=== PATIENT | female | born 1945 | race Caucasian/White ===

== ENCOUNTER 2018-11-14 11:30 | Inpatient (IN) ==
--- NOTE | 2018-11-14 12:02 | Emergency Department Note ---
Disposition Clinical Impression: GI bleeding Disposition: Admitted As Inpatient Condition: Fair Referrals: Monica Vernon CNP [Primary Care Provider] - Forms: ED Satisfaction Letter Time of Disposition: 14:33 General Adult HPI - General Chief complaint: ED Recheck/Abnormal Lab/Rx Stated complaint: "blood transfusion" Time Seen by Provider: 11/14/18 11:40 Source: patient, family Limitations: no limitations - History of Present Illness HPI Narrative: Patient is a 73-year-old female presents to emergency room with abnormal lab work. The patient did have labs drawn yesterday at her doctor's office, they came back today apparently she had a low hemoglobin, she was contacted this morning and urged to come directly to the emergency room for further evaluation. Patient does complain of being overall weak for the past one month. The patient also short of breath with exertion for the same time period. Patient denies any chest pain or abdominal pain, she denies any black or bloody stools. The patient has had some swelling in her legs she states. She has had no other or GI complaints. She has had no headaches. Patient has had no nausea or vomiting. She does complain of some back discomfort in her mid and low back pain going on for about the last 3-4 months as well. Patient states that is moderate in intensity, sometimes worse with motion. Patient denies any other focal weakness or numbness. She has had no loss of bowel or bladder. She has had no numbness or tingling. Pain Scale: 0 - Related Data Home Medications Medication Instructions Recorded Confirmed Lovastatin 10 mg PO DAILY 06/04/16 06/04/16 Previous Rx's Medication Instructions Recorded Ciprofloxacin [Cipro] 500 mg PO BID #20 tablet 06/04/16 Promethazine/Dextromethorphan 5 ml PO Q4-6H #240 syrup 06/04/16 [Promethazine-Dm Syrup] Allergies Allergy/AdvReac Type Severity Reaction Status Date / Time No Known Allergies Allergy Verified 06/04/16 12:54 Review of Systems: As mentioned per history of present illness and as follows. Constitutional: Negative for chills or fever HENT: Negative for sore throat. Eyes: Negative for visual disturbance Respiratory: Positive for shortness of breath. Cardiovascular: Negative for palpitations. Gastrointestinal: Negative for abdominal pain Genitourinary: Negative for dysuria Musculoskeletal: Positive for back pain. Skin: Negative for rash. Neurological: Negative for focal weakness Psychiatric/Behavioral: Negative for depression Past Medical History - Past Medical History Medical history: Reports: hyperlipidemia, thyroid disease Psychiatric history: Reports: no psych history - Social History Smoking Status: Never smoker Smokeless Tobacco Status: No Alcohol use: Reports: none Drug use: Reports: none Physical Exam PHYSICAL EXAM Constitutional: Well developed, Well nourished, No acute distress, Non-toxic appearance. HENT: Normocephalic, Atraumatic, Bilateral external ears normal, Oropharynx moist, No oral exudates, Nose normal. Neck- Normal range of motion, No tenderness, Supple. Eyes: PERRL, EOMI, Conjunctiva pale,. Cardiovascular: Tachycardic rate and regular rhythm without clicks, rubs, gallops. +2 systolic murmur Respiratory: Normal breath sounds, No respiratory distress, No wheezing, rhonchi, or crackles. GI: Soft, nontender, no evidence of guarding or peritoneal signs. Bowel sounds are active. Musculoskeletal: Good range of motion in all major joints. No tenderness to palpation or major deformities noted to the extremities. The patient does have tenderness of the mid and lower aspects of the spine into the thoracic and lumba r region. Equal strength in the upper and lower extremities. Integument: Warm, Dry, No erythema, No rash. No edema. Neurologic: Alert & oriented x 3, Normal sensory function, No focal deficits noted. CN II-XII grossly intact. - General Limitations: no limitations Course Vital Signs Temperature 97.4 F L 11/14/18 11:33 Pulse Rate 119 11/14/18 11:33 Respiratory Rate 18 11/14/18 11:33 Blood Pressure 92/52 11/14/18 11:33 O2 Sat by Pulse Oximetry 100 11/14/18 11:33 Temperature 97.4 F L 11/14/18 11:33 Pulse Rate 119 11/14/18 11:33 Respiratory Rate 18 11/14/18 11:33 Blood Pressure 92/52 11/14/18 11:33 O2 Sat by Pulse Oximetry 100 11/14/18 11:33 Oxygen Delivery Oxygen Delivery Room Air Medical Decision Making - MDM Narrative Medical decision making narrative: EKG was obtained that showed evidence of sinus tachycardia 110 beats a minute, the patient has no evidence of ST segment elevation or depression, T-wave flattening seen laterally. AL interval QT intervals within normal limits. Interpreted by myself. Patient is found to have significant anemia, patient has a slight troponin elevation, is most likely secondary to her significant anemia. The patient does found to have a minimal left-sided basilar infiltrate consistent with possible pneumonia. The patient however does not have a cough. She has not had fevers. Patient however does have the shortness of breath, she was treated however with Rocephin and azithromycin. Patient does not appear to be septic. The patient did have a slightly elevated white count. Patient however is also found to be positive for GI bleed. The patient at this point in time was likely has a slow GI bleed resulting her anemia. Patient is not on any blood thinners. Case was discussed with hospitalist as well as with GI doctor distribution spec. Patient at this time will be admitted to the hospital. Patient was also ordered for 2 units of packed red blood cells here in the emergency room. CRITICAL CARE TIME OF 40 MINUTES PERFORMING THIS INDIVIDUAL OUTSIDE OF SEPARATELY BILLABLE PROCEDURES. THIS INCLUDES BEDSIDE EVALUATION, INTERPRETATION OF EKG AND LAB TESTS AND CONSULTATIONS. Final impression 1. Acute blood loss anemia 2. GI bleeding 3. Community acquired pneumonia 4. Elevated troponin most likely secondary to #1 - Lab Data Result diagrams: 11/14/18 11:51 11/14/18 11:51 Lab Results 11/14/18 11/14/18 11/14/18 Range/Units 11:41 11:51 11:51 WBC 14.0 H (4.3-11.1) K/mcL RBC 1.80 L (3.82-4.97) M/mcL Hgb 5.6 L* (11.5-15.4) g/dL Hct 18.8 L (35.3-44.9) % MCV 104.4 H (83.0-100.0) fL MCH 31.1 (28.0-33.3) pg MCHC 29.8 L (31.6-35.5) g/dL RDW 14.9 H (11.5-14.5) % Plt Count 121 L (140-400) K/mcL MPV 12.3 (9.4-12.4) fL Immature Gran % 1.1 (0-4) % Seg Neutrophils % 84.9 % Lymphocytes % 8.2 % Monocytes % 5.4 % Eosinophils % 0.2 % Basophils % 0.2 % Neutrophils # 11.9 H (1.6-8.9) K/mcL Lymphocytes # 1.2 (0.6-4.6) K/mcL Monocytes # 0.8 (0.0-1.3) K/mcL Eosinophils # 0.0 (0.0-0.6) K/mcL Basophils # 0.0 (0.0-0.2) K/mcL Nucleated RBCs/100 WBC 0.2 H (0) /100 WBC Platelet Estimate Slight Decrease L (Normal) Polychromasia 1+ A (Not Present) Anisocytosis 1+ A (Not Present) Macrocytosis Present A (Not Present) PT 14.0 H (9.4-12.1) Seconds INR 1.2 APTT 35.7 (26.0-36.0) Seconds Sodium 138 (136-145) mEq/L Potassium 3.7 (3.5-5.1) mEq/L Chloride 108 H (98-107) mEq/L Carbon Dioxide 25 (23-29) mEq/L BUN 23 (8-23) mg/dL Creatinine 0.76 (0.60-1.20) mg/dL Est GFR ( Amer) > 60 (> 60) Est GFR (Non-Af Amer) > 60 (> 60) BUN/Creatinine Ratio 30 H (6-26) Glucose 94 (70-105) mg/dL Calculated Osmolality 289 (280-300) Calcium 8.2 L (8.6-10.3) mg/dL Troponin I 0.14 H* (< 0.04) ng/mL Stool Occult Bld Scrn (Negative) Blood Type Antibody Screen Crossmatch 11/14/18 11/14/18 Range/Units 12:31 Unknown WBC (4.3-11.1) K/mcL RBC (3.82-4.97) M/mcL Hgb (11.5-15.4) g/dL Hct (35.3-44.9) % MCV (83.0-100.0) fL MCH (28.0-33.3) pg MCHC (31.6-35.5) g/dL RDW (11.5-14.5) % Plt Count (140-400) K/mcL MPV (9.4-12.4) fL Immature Gran % (0-4) % Seg Neutrophils % % Lymphocytes % % Monocytes % % Eosinophils % % Basophils % % Neutrophils # (1.6-8.9) K/mcL Lymphocytes # (0.6-4.6) K/mcL Monocytes # (0.0-1.3) K/mcL Eosinophils # (0.0-0.6) K/mcL Basophils # (0.0-0.2) K/mcL Nucleated RBCs/100 WBC (0) /100 WBC Platelet Estimate (Normal) Polychromasia (Not Present) Anisocytosis (Not Present) Macrocytosis (Not Present) PT (9.4-12.1) Seconds INR APTT (26.0-36.0) Seconds Sodium (136-145) mEq/L Potassium (3.5-5.1) mEq/L Chloride (98-107) mEq/L Carbon Dioxide (23-29) mEq/L BUN (8-23) mg/dL Creatinine (0.60-1.20) mg/dL Est GFR ( Amer) (> 60) Est GFR (Non-Af Amer) (> 60) BUN/Creatinine Ratio (6-26) Glucose (70-105) mg/dL Calculated Osmolality (280-300) Calcium (8.6-10.3) mg/dL Troponin I (< 0.04) ng/mL Stool Occult Bld Scrn Positive A (Negative) Blood Type O POSITIVE Antibody Screen NEGATIVE Crossmatch See Detail Critical Care Time Critical Care Time: Yes Total Critical Care Time: 40 Attestation: Please see chart
[2018-11-14 12:45] LABS: Basophils % 0.2 %; Eosinophils % 0.2 %; Hematocrit 18.8 % (35.3-44.9); Immature Granulocytes % 1.1 % (0-4); Lymphocytes # 1.2 K/mcL (0.6-4.6); Lymphocytes % 8.2 %; Mean Corpuscular HGB Conc 29.8 g/dL (31.6-35.5); Mean Corpuscular Hemoglobin 31.1 pg (28.0-33.3); Mean Corpuscular Volume 104.4 fL (83.0-100.0); Mean Platelet Volume 12.3 fL (9.4-12.4); Monocytes # 0.8 K/mcL (0.0-1.3); Monocytes % 5.4 %; Neutrophils # 11.9 K/mcL (1.6-8.9); Nucleated Red Blood Cells 0.2 /100 WBC (0); Platelet Count 121 K/mcL (140-400); Red Cell Distribution Width 14.9 % (11.5-14.5); Segmented Neutrophils % 84.9 %
[2018-11-14 12:53] LABS: INR 1.2
[2018-11-14 12:55] LABS: Activated Partial Thrombo Time 35.7 Seconds (26.0-36.0)
[2018-11-14 13:01] LABS: BUN/Creatinine Ratio 30 (6-26); Blood Urea Nitrogen 23 mg/dL (8-23); Calcium 8.2 mg/dL (8.6-10.3); Carbon Dioxide 25 mEq/L (23-29); Chloride 108 mEq/L (98-107); Glucose 94 mg/dL (70-105); Osmolality,Calculated 289 (280-300); Potassium 3.7 mEq/L (3.5-5.1); Sodium 138 mEq/L (136-145); eGFR For African Americans > 60 (> 60); eGFR For Non-African Americans > 60 (> 60)
[2018-11-14 13:10] LABS: Troponin I 0.14 ng/mL (< 0.04)
[2018-11-14 13:17] LABS: Hemoglobin 5.6 g/dL (11.5-15.4)
[2018-11-14] MEDS ORDERED: Pantoprazole 40 MG VIAL IVP ONE (13:20)
[2018-11-14] MEDS ORDERED: cefTRIAXone 1,000 MG in Water for inj. (sterile) 10 ML IVP ONE (13:54)
[2018-11-14] MEDS ORDERED: Azithromycin 500 MG in D5% in Water 250 ML IVPB ONE (13:54)
[2018-11-14 13:59] LABS: Anisocytosis 1+ (Not Present); Macrocytosis Present (Not Present); Platelet Estimate Slight Decrease (Normal)
[2018-11-14 14:00] LABS: Polychromasia 1+ (Not Present)
[2018-11-14] MEDS ORDERED: 0.9 % Sodium Chloride 1,000 ML IVC ONE (14:08)
[2018-11-14] MEDS ORDERED: Naloxone 0.4 MG/ML INJ IVP PRN (14:29)
[2018-11-14] MEDS ORDERED: 0.9 % Sodium Chloride 1,000 ML IVC SCH (14:30)
--- NOTE | 2018-11-14 14:41 | Internal Med History&Physical ---
Date of Encounter: 11/14/18 Time of Encounter: 14:40 Internal Medicine - H&P: HPI Chief complaint: anemia Admitted From: Home Plans for Post Hospital Care: Home History of present illness: Ms. Martínez is a 73 year old female with no significant past medical history presented to the emergency department with complaint of abnormal labs. As per patient she recently had routine lab works performed at her primary care [facility] for her annual checkup and was called earlier on admission morning to come to the emergency department immediately as she was severely anemic. She does complain that she is been more weak over the past month and her weakness has gradually worsened. She is also noticed that she is been having shortness of breath especially on exertion for the past few months this also been progressively worsening. She denies any chest pain, abdominal pain, melena, hematochezia, hemoptysis or hematemesis. She does have low back pain which started about 3-4 months ago as well and she has been taking 2 Aleve along with 2 Tylenols daily which alleviates her back pain. She denies any weakness or numbness of her lower extremities, has had no loss of bowel or bladder function. She denies any numbness or tingling associated with her back pain. She was never anemic, is not taking any medications other than the pain medications above along with multivitamins and cholesterol medications. Has never had a colonoscopy however has had an EGD previously for poor oral intake which was many years ago and she cannot recall the results. She denies cough, chills, fever, chest pain, palpitations, abdominal pain, nausea, vomiting or diarrhea. While in the emergency department her hemoglobin was found to be 5.6. GI was consulted and recommended clear liquid diet today and nothing by mouth at midnight for colonoscopy and endoscopy. She was ordered to be transfused 2 units of PRBC. It was endorsed for admission for further management of her acute blood loss anemia. Past Med Surg Social Fam HX - Past Medical History Medical history: hyperlipidemia, thyroid disease Psychiatric history: no psych history - Past Surgical History Additional surgical history: endoscopy - Social History Smoking Status: Never smoker Smokeless Tobacco Status: No Alcohol use: none Drug use: none - Family History Mother Adopted: No Living Status: Cause of : hip fx complications Hx Family Cardiac Disorders: No Hx Family Respiratory Disorders: No Hx Family Cancer: No Hx Family GI Disorders: No Hx Family Genitourinary Disorders: No Hx Family Endocrine Disorder: No Hx Family Musculoskeletal Disorders: No Hx Family Neuromuscular Disorders: No Hx Family Neurologic Disorders: No Father History Unknown: Yes Hx Family Cardiac Disorders: No Hx Family Respiratory Disorders: Yes (TB ) Hx Family Cancer: No Hx Family GI Disorders: No Hx Family Genitourinary Disorders: No Hx Family Endocrine Disorder: No Hx Family Musculoskeletal Disorders: No Hx Family Neuromuscular Disorders: No Hx Family Neurologic Disorders: No Hx Family HEENT Disorders: No Hx Family Autoimmune Disorders: No Internal Medicine - H&P: Meds Ciprofloxacin [Cipro] 500 mg PO BID #20 tablet 06/04/16 [Rx] Lovastatin 10 mg PO DAILY 06/04/16 [History] Promethazine/Dextromethorphan [Promethazine-Dm Syrup] 5 ml PO Q4-6H #240 syrup 06/04/16 [Rx] Allergy/AdvReac Type Severity Reaction Status Date / Time No Known Allergies Allergy Verified 06/04/16 12:54 All Systems PM: A 10-system review of systems was performed and is negative for pertinent findings except as documented above in the HPI. - Constitutional Vitals: Temp Pulse Resp BP Pulse Ox 97.4 F L 119 18 92/52 100 11/14/18 11:33 11/14/18 11:33 11/14/18 11:33 11/14/18 11:33 11/14/18 11:33 Exam: General: Patient is alert, oriented, no acute distress, thin Head: atraumatic, normocephalic, dark discoloration of her face, slight discoloration around the eye and for head. Eye: normal appearance, PERRL, no scleral icterus, no conjunctival pallor ENT: mucous membranes moist, normal external ear exam Neck: normal inspection, trachea midline, full ROM, Chest: normal inspection, symmetric chest rise Respiratory: Good respiratory effort. Bilateral breath sounds are clear without wheezing, crackles, or rhonchi. Cardiovascular: tachcardic . s1 and s2 No clicks, rubs, gallops, or murmors. Abdomen: Bowel sounds present normoactive x-4 quadrants. Abdomen is soft, nondistended. no Epigastric tenderness. No guarding or rebound. No organomegaly noted, thin musculoskeletal: Spontaneously moving all extremities. no edema, no calf tenderness Skin: warm, dry, intact. Neuro: Alert and oriented x4. no focal deficit Psych: Patient's affect is normal Internal Med - H&P Results - Labs CBC & Chem 7: 11/14/18 14:20 11/14/18 14:20 Labs: Short CBC 11/14/18 Range/Units 11:51 WBC 14.0 H (4.3-11.1) K/mcL Hgb 5.6 L* (11.5-15.4) g/dL Hct 18.8 L (35.3-44.9) % Plt Count 121 L (140-400) K/mcL Neutrophils # 11.9 H (1.6-8.9) K/mcL BMP 11/14/18 11:51 Sodium 138 Potassium 3.7 Chloride 108 H Carbon Dioxide 25 BUN 23 Creatinine 0.76 Glucose 94 Calcium 8.2 L Cardiac Enzymes 11/14/18 Range/Units 11:51 Troponin I 0.14 H* (< 0.04) ng/mL - EKG Data -: EKG Interpreted by Myself EKG shows normal: sinus rhythm (sinus tachcardia, LAE, borderline T wave abnormalities in kristian lateral leads) - EKG Data Prior EKG available for review: yes When compared to previous EKG: there is no significant change - Impressions ITS Impressions Lumbar Spine X-Ray 11/14/18 12:03 IMPRESSION: Mild degenerative changes with grade 1 anterolisthesis of L4 on L5. Transitional lumbosacral vertebral body is incidentally noted. D/ : / 11/14/2018 13:02:35 Sherrill Mcgarry MD / [facility] Interpreting Provider: Sherrill Mcgarry MD Chest X-Ray 11/14/18 13:22 IMPRESSION: Patchy left basilar airspace disease concerning for pneumonia. Radiographic follow-up recommended to ensure resolution. D/ /14/2018 13:59:28 Jason Caballero MD / [facility] Interpreting Provider: Jason Caballero MD - Assessment and Plan (1) Acute blood loss anemia Current Visit: Yes Status: Acute Assessment and plan: most likley secondary to GI bleed will rule out other etiologies ( maligancy) - hemoglobin was 14 in 11/2017 admit to step down 2 PRBC ordered continue with protonix drip occult blood positive GI was consulted will keep her nothing by mouth at midnight for EGD and colonoscopy Continue to monitor H&H every 6 hours and transfuse below 7 Iron panel, ferritin and B12 levels were added to the labs prior to transfusion continue to monitor vitals closely orthostatic vitals follow H&H Q6H next one at 6 pm Avoid non-steroidal anti-inflammatory drugs, anti-platelets, anticoagulants (2) GI bleeding Current Visit: Yes Status: Acute Assessment and plan: likely upper GI ? secondary to NSAID use vs AVM rule out malignancy and other etiologies occult blood positive management as above Qualifiers: GI bleed type/associated pathology: unspecified gastrointestinal hemorrhage type Qualified Code(s): K92.2 - Gastrointestinal hemorrhage, unspecified (3) Elevated troponin Current Visit: Yes Status: Acute Assessment and plan: most likely secondary to supple vs demand mismatch from tachycardia secondary to severe anemia continue to follow troponin Q6H currently chest pain free will get TTE continue statins once confirmed if not NPO consider cardiology consult pending next troponin- will endorse to the night team to follow the patient closely (4) CAP (community acquired pneumonia) Current Visit: Yes Status: Acute Assessment and plan: continue with ceftriaxone and azithromycin urine antigens blood cx sputum cx Qualifiers: Laterality: left Lung location: lower lobe of lung Qualified Code(s): J18.1 - Lobar pneumonia, unspecified organism (5) Thrombocytopenia Current Visit: Yes Status: Acute Assessment and plan: ? secondary to poor nutrition and NSAID use will rule out other etiologies ( has macrocytic anemia ? MDS) (6) Underweight Current Visit: Yes Status: Acute Assessment and plan: nutrition consult (7) Macrocytosis Current Visit: Yes Status: Acute Assessment and plan: b12 and folate ordered will follow (8) DVT prophylaxis Current Visit: Yes Status: Acute Assessment and plan: scds (9) Back pain Current Visit: Yes Status: Acute Assessment and plan: lidocaine patch tylenol for pain control lumbar spine: IMPRESSION: Mild degenerative changes with grade 1 anterolisthesis of L4 on L5. Transitional lumbosacral vertebral body is incidentally noted. Qualifiers: Back pain location: low back pain Chronicity: chronic Back pain laterality: bilateral Sciatica presence: without sciatica Qualified Code(s): M54.5 - Low back pain; G89.29 - Other chronic pain - Time Spent With Patient Total time spent is greater than 50% in coordination of care (as documented) at patient's floor/unit and/or counseling patient:
[2018-11-14] MEDS ORDERED: 0.9 % Sodium Chloride 500 ML ONE (14:45)
[2018-11-14 15:01] LABS: BUN/Creatinine Ratio 32 (6-26); Blood Urea Nitrogen 23 mg/dL (8-23); Calcium 7.8 mg/dL (8.6-10.3); Carbon Dioxide 25 mEq/L (23-29); Chloride 108 mEq/L (98-107); Glucose 92 mg/dL (70-105); Magnesium 2.1 mg/dL (1.6-2.6); Osmolality,Calculated 285 (280-300); Potassium 3.8 mEq/L (3.5-5.1); Sodium 136 mEq/L (136-145); eGFR For African Americans > 60 (> 60); eGFR For Non-African Americans > 60 (> 60)
[2018-11-14 15:05] LABS: Eosinophils % 0.2 %; Immature Granulocytes % 0.8 % (0-4)
[2018-11-14 15:06] LABS: Basophils % 0.2 %; Hematocrit 16.9 % (35.3-44.9); Lymphocytes # 1.5 K/mcL (0.6-4.6); Lymphocytes % 11.3 %; Mean Corpuscular Hemoglobin 30.2 pg (28.0-33.3); Mean Corpuscular Volume 104.3 fL (83.0-100.0); Monocytes # 0.6 K/mcL (0.0-1.3); Monocytes % 4.9 %; Neutrophils # 10.6 K/mcL (1.6-8.9); Platelet Count 115 K/mcL (140-400); Red Blood Count 1.62 M/mcL (3.82-4.97); Red Cell Distribution Width 14.9 % (11.5-14.5); Segmented Neutrophils % 82.6 %; White Blood Count 12.8 K/mcL (4.3-11.1)
[2018-11-14 15:10] LABS: Hemoglobin 4.9 g/dL (11.5-15.4)
[2018-11-14 15:44] LABS: Hypochromasia Present (Not Present); Polychromasia 1+ (Not Present)
[2018-11-14 15:45] LABS: Platelet Estimate Slight Decrease (Normal)
[2018-11-14] MEDS ORDERED: Acetaminophen 325 MG TABLET PO PRN (15:59)
[2018-11-14] MEDS ORDERED: SODIUM CHLORIDE/NAHCO3/KCL/PEG 4,000 ML SOLN.RECON PO ONE (16:17)
[2018-11-14 16:25] LABS: % Iron Saturation 5 % (15-50); Iron 19 mcg/dL (50-170); Transferrin 260 mg/dL (203-362)
[2018-11-14 16:44] LABS: Procalcitonin 0.38 ng/mL (0.00-0.15)
[2018-11-14 16:49] LABS: Ferritin 58 ng/mL (10-120)
[2018-11-14] MEDS: Pantoprazole 40 MG in 0.9 % Sodium Chloride Mini Bag 100 ML IVC SCH ×2 (18:48→23:52)
[2018-11-14] MEDS ORDERED: 0.9 % Sodium Chloride 250 ML ONE (20:24)
[2018-11-14 20:48] LABS: Hematocrit 28.8 % (35.3-44.9)
[2018-11-14 20:50] LABS: Hemoglobin 9.1 g/dL (11.5-15.4)
[2018-11-14 23:06] LABS: Bilirubin,Urine Negative (Negative); Blood,Urine Negative (Negative); Clarity,Urine Clear (Clear); Color,Urine Yellow (Yellow); Glucose,Urine (UA) Normal (Normal); Ketones,Urine Negative (Negative); Leukocyte Esterase,Urine Large (Negative); Nitrite,Urine Negative (Negative); Protein,Urine Negative (Neg-Trace); Specific Gravity,Urine 1.023 (1.010-1.025); Urobilinogen,Urine Normal (Normal)
[2018-11-14 23:13] LABS: Bacteria,Urine None Seen per hpf (None-Few); Hyaline Casts,Urine None Seen per lpf (None-Few); Squamous Epithelial Cell,Urine Moderate per lpf (None-Few); WBC,Urine 50-100 per hpf (0-3)
[2018-11-15 01:27] LABS: Hematocrit 32.6 % (35.3-44.9); Hemoglobin 10.5 g/dL (11.5-15.4)
[2018-11-15 01:44] LABS: BUN/Creatinine Ratio 26 (6-26); Blood Urea Nitrogen 16 mg/dL (8-23); Carbon Dioxide 18 mEq/L (23-29); Chloride 110 mEq/L (98-107); Glucose 83 mg/dL (70-105); Osmolality,Calculated 280 (280-300); Potassium 3.5 mEq/L (3.5-5.1); Sodium 135 mEq/L (136-145); eGFR For African Americans > 60 (> 60); eGFR For Non-African Americans > 60 (> 60)
[2018-11-15] MEDS: Pantoprazole 40 MG in 0.9 % Sodium Chloride Mini Bag 100 ML IVC SCH ×2 (04:53→12:01)
[2018-11-15 06:58] LABS: Basophils % 0.3 %; Mean Corpuscular Hemoglobin 30.6 pg (28.0-33.3)
[2018-11-15 07:00] LABS: Eosinophils % 0.2 %; Hematocrit 30.1 % (35.3-44.9); Hemoglobin 9.8 g/dL (11.5-15.4); Immature Granulocytes % 0.9 % (0-4); Immature Platelets 7.5 % (1.1-6.1); Lymphocytes # 0.9 K/mcL (0.6-4.6); Lymphocytes % 7.3 %; Mean Corpuscular HGB Conc 32.6 g/dL (31.6-35.5); Mean Corpuscular Volume 94.1 fL (83.0-100.0); Mean Platelet Volume 12.4 fL (9.4-12.4); Monocytes # 0.8 K/mcL (0.0-1.3); Monocytes % 6.5 %; Neutrophils # 10.8 K/mcL (1.6-8.9); Segmented Neutrophils % 84.8 %; White Blood Count 12.7 K/mcL (4.3-11.1)
[2018-11-15 07:15] LABS: Platelet Count 65 K/mcL (140-400)
--- NOTE | 2018-11-15 08:10 | Electrocardiograph Report ---
[facility] Test Date: 2018-11-14 Pat Name: Macie Martínez Department: [id number] Room: 08 Gender: F Sales Developer: : [id number] Requested By: [id number] Order Number: [id number] Reading MD: German Rubio Measurements Intervals [place] Rate: 110 P: 83 TX: 133 QRS: 77 QRSD: 70 T: -10 QT: 332 QTc: 450 Interpretive Statements Sinus tachycardia Electronically Signed On 11-15-2018 8:09:06 EDT by German Rubio
--- NOTE | 2018-11-15 08:32 | Gastroenterology Consult Note ---
Date of Encounter: 11/15/18 Time of Encounter: 08:00 - Assessment and plan (1) Anemia Current Visit: Yes Status: Acute Assessment and plan: Severe iron deficiency anemia she also has macrocytosis and low platelets and the concern is whether she has cirrhosis too. She will have a EGD colonoscopy done today. I will also do a CT of the abdomen and also we will do liver function tests. She will be given IV iron. She also had already has received blood transfusion Qualifiers: Anemia type: iron deficiency Qualified Code(s): D50.0 - Iron deficiency anemia secondary to blood loss (chronic) (2) Macrocytosis Current Visit: Yes Status: Acute Assessment and plan: Her B12 is normal we will check her folic acid. Also need to rule out liver disorder as cause of her macrocytosis (3) Thrombocytopenia Current Visit: Yes Status: Acute Assessment and plan: Rule out cirrhosis (4) Hypothyroidism Current Visit: Yes Status: Acute Assessment and plan: With elevated TSH management as per hospitalist. Qualifiers: Qualified Code(s): E03.9 - Hypothyroidism, unspecified - Time Spent With Patient Total time spent is greater than 50% in coordination of care (as documented) at patient's floor/unit and/or counseling patient: GI History of Present Illness - Data of Consult Requesting Physician: Angeline Nick MD - Consult Narrative History of present illness: Ms. Martínez is a 73 year old female with no significant past medical history admitted because of severe symptomatic anemia. Patient was found to be very anemic and the was feeling tired and fatigued denies any blood in the stool no trouble swallowing no black stool. She has been giving blood transfusion. She does complain that she is been weak over the past month and her weakness has gradually worsened. She is also noticed that she is been having shortness of breath especially on exertion for the past few months this also been progressively worsening. She denies any chest pain, abdominal pain, melena, hematochezia, hemoptysis or hematemesis. She does have low back pain which started about 3-4 months ago as well and she has been taking 2 Aleve along with 2 Tylenols daily which alleviates her back pain. Past Med Surg Social Fam HX - Past Medical History Medical history: hyperlipidemia, thyroid disease Psychiatric history: no psych history - Past Surgical History Additional surgical history: endoscopy - Social History Smoking Status: Never smoker Smokeless Tobacco Status: No Alcohol use: none Drug use: none - Family History Mother Adopted: No Living Status: Cause of : hip fx complications Hx Family Cardiac Disorders: No Hx Family Respiratory Disorders: No Hx Family Cancer: No Hx Family GI Disorders: No Hx Family Genitourinary Disorders: No Hx Family Endocrine Disorder: No Hx Family Musculoskeletal Disorders: No Hx Family Neuromuscular Disorders: No Hx Family Neurologic Disorders: No Father History Unknown: Yes Hx Family Cardiac Disorders: No Hx Family Respiratory Disorders: Yes (TB ) Hx Family Cancer: No Hx Family GI Disorders: No Hx Family Genitourinary Disorders: No Hx Family Endocrine Disorder: No Hx Family Musculoskeletal Disorders: No Hx Family Neuromuscular Disorders: No Hx Family Neurologic Disorders: No Hx Family HEENT Disorders: No Hx Family Autoimmune Disorders: No Review of Systems: GI: as per [facility]: Been feeling weak and fatigued EYES: denies yellow discoloration ENT: denies pain with swallowing or difficulty swallowing CARDIO: denies chest pain, palpitations RESP: No Shortness of breath with exertion : denies change in color of urine NEURO: denies any weakness HEME: Denies any bruising MS: Does admit of having back pain DERM: denies rash or itching PSYCH: During winter depression - Musculoskeletal Musculoskeletal ROS GI: Present: back pain - Constitutional Vitals: Temp Pulse Resp BP Pulse Ox 97.9 F 92 18 116/57 97 11/15/18 07:45 11/15/18 07:45 11/15/18 07:45 11/15/18 07:45 11/15/18 07:45 Exam: CONSTITUTIONAL:alert, no acute distress.HEAD:normocephalic.EYES:no jaundice.NECK:no obvious swelling.HEART:regular rate and rhythm, aortic area murmurs.LUNGS:bilateral good air entry.ABDOMEN:non distended, soft, non tander, no masses pulpable, no organomegaly.RECTAL EXAM:Deferred.EXTREMIT IES:no clubbing, cyanosis or edema.SKIN:no stigmata of chronic liver disease.NEUROLOGIC:no obvious focal defect. Results - Labs CBC & Chem 7: 11/15/18 06:45 11/15/18 01:09 Labs: Last Result 11/14/18 11/14/18 11/15/18 20:11 23:50 01:09 Calcium 7.0 L Troponin I 0.15 H* 0.19 H* 11/15/18 06:45 Calcium Troponin I 0.17 H* Entire Visit 11/14/18 11/15/18 11/15/18 20:11 01:09 06:45 Hgb 9.1 L D 10.5 L 9.8 L Hct 28.8 L 32.6 L 30.1 L - ABG ABG results: PT/INR, D-dimer PT 14.0 Seconds (9.4-12.1) H 11/14/18 11:41 - Impressions Impressions Lumbar Spine X-Ray 11/14/18 12:03 IMPRESSION: Mild degenerative changes with grade 1 anterolisthesis of L4 on L5. Transitional lumbosacral vertebral body is incidentally noted. D/ / 11/14/2018 13:02:35 Sherrill Mcgarry MD / [facility] Interpreting Provider: Sherrill Mcgarry MD Chest X-Ray 11/14/18 13:22 IMPRESSION: Patchy left basilar airspace disease concerning for pneumonia. Radiographic follow-up recommended to ensure resolution. D/ / 11/14/2018 13:59:28 Jason Caballero MD / [facility] Interpreting Provider: Jason Caballero MD Consult Discharge Plan - Plan Referrals: Monica Vernon, [employer] [Primary Care Provider] - 11/24/18 9:00 am
[2018-11-15] MEDS: cefTRIAXone 2,000 MG in Water for inj. (sterile) 20 ML IVPB SCH (08:59)
--- NOTE | 2018-11-15 09:19 | Anesthesia Evaluation PreOp ---
Date of Encounter: 11/15/18 Time of Encounter: 09:15 - Past History Planned Operation: EGD/Colonoscopy Cardiac History: Hyperlipidemia, Other (Anemia) Pulmonary History: Denies Any Significant HX MIXING SUPERVISOR History: Denies Any Significant HX Other Medical History: Thyroid Anesthesia History: No Prior Anesthetic Complications : No Alcohol Use: none Drug use: none Medications and Allergies Cholecalciferol (D-3) [Vitamin D] 1,000 unit PO DAILY 11/14/18 [History] Levothyroxine [Synthroid] 50 mcg PO Q48H 11/14/18 [History] Levothyroxine [Synthroid] 75 mcg PO Q48H 11/14/18 [History] Lovastatin [Mevacor] 20 mg PO DAILY 11/14/18 [History] Allergy/AdvReac Type Severity Reaction Status Date / Time No Known Allergies Allergy Verified 06/04/16 12:54 - Meds/Allergy Pre-op Review Medications Reviewed: Yes Allergies Reviewed: Yes Beta Blockers on Current Med List: No Anesthesia Results - Labs 11/15/18 06:45 11/15/18 01:09 - Imaging EKG: report reviewed (ST) Anesthesia Exam O2 Sat Height 1.63 m Weight 45.6 kg Weight 41.912 kg O2 Sat by Pulse Oximetry 97 O2 Sat by Pulse Oximetry 97 O2 Sat by Pulse Oximetry 97 O2 Sat by Pulse Oximetry 96 O2 Sat by Pulse Oximetry 98 O2 Sat by Pulse Oximetry 98 O2 Sat by Pulse Oximetry 99 O2 Sat by Pulse Oximetry 99 O2 Sat by Pulse Oximetry 100 O2 Sat by Pulse Oximetry 97 O2 Sat by Pulse Oximetry 100 O2 Sat by Pulse Oximetry 100 O2 Sat by Pulse Oximetry 100 Vital Signs Temp Pulse Resp BP Pulse Ox 97.4 F L 119 18 92/52 100 11/14/18 11:33 11/14/18 11:33 11/14/18 11:33 11/14/18 11:33 11/14/18 11:33 Height: 5'4 Weight: 100 lbs NPO (# of Hours): MN Pain Scale: 0 - HEENT Pupil (Motor): Pupils equal, EOMI Mallampati: III Oral Opening: Less than or equal to 3 - MIXING SUPERVISOR LOC: Oriented MIXING SUPERVISOR Motor: Normal RUE, Normal LUE, Normal RLE, Normal LLE, Normal Face MIXING SUPERVISOR Sensory: Normal: RUE, LUE, RLE, LLE, Face - Cardiac Rhythm: Regular Murmur: None JVD: No Carotid Bruit: No - Pulmonary Breath Sounds: bilateral Clear Respiratory Effort: Symmetrical Anesthesia Assess/Plan ASA Score: 2 (Hypothyroid Thrombocytopenia Hyperlopidemia), 3 Level of consciousness: Cooperative, Oriented Anesthetic Plan: MAC Autologous Blood: No Monitoring Plan: Standard Monitors Recovery Plan: Other (Discussed MAC, agrees to proceed)
--- NOTE | 2018-11-15 09:22 | Internal Med Progress Note ---
Hospitalist Progress Note - Encounter Date of Encounter: 11/15/18 Time of Encounter: 08:00 - Subjective Interval History: She was seen and examined at bedside. Reports that she is feeling much better than admission. Has had no chest pain, palpitations or shortness of breath. Is agreeable for endoscopy and colonoscopy today. Denies any hematemesis, melena or hematochezia overnight. As per nursing staff there was no overnight events. I discussed her Synthroid in proper way to take the medications and she reports that she takes her medications on empty stomach I discussed that I will increase her Synthroid and for her to follow-up TSH level as outpatient. - Exam Vitals: Temp Pulse Resp BP Pulse Ox 97.9 F 92 18 116/57 97 11/15/18 07:45 11/15/18 07:45 11/15/18 07:45 11/15/18 07:45 11/15/18 07:45 Exam: General: Patient is alert, oriented, no acute distress, thin Head: atraumatic, normocephalic, dark discoloration of her face, slight discoloration around the eye and for head. Eye: normal appearance, PERRL, no scleral icterus, no conjunctival pallor ENT: mucous membranes moist, normal external ear exam Neck: normal inspection, trachea midline, full ROM, Chest: normal inspection, symmetric chest rise Respiratory: Good respiratory effort. Bilateral breath sounds are clear without wheezing, crackles, or rhonchi. Cardiovascular: tachcardic . s1 and s2 No clicks, rubs, gallops, or murmors. Abdomen: Bowel sounds present normoactive x-4 quadrants. Abdomen is soft, nondistended. no Epigastric tenderness. No guarding or rebound. No organomegaly noted, thin musculoskeletal: Spontaneously moving all extremities. no edema, no calf tenderness Skin: warm, dry, intact. Neuro: Alert and oriented x4. no focal deficit Psych: Patient's affect is normal - Assessment and Plan (1) Acute blood loss anemia Current Visit: Yes Status: Acute Assessment and Plan: most likley secondary to GI bleed will rule out other etiologies ( maligancy) - hemoglobin was 14 in 11/2017 Status post 3 PRBC with improvement of her H&H to 9.8 continue with protonix drip occult blood positive GI on board for EGD and colonoscopy on 11/15 Continue to monitor H&H every 6 hours and transfuse below 7 B12 within normal limit, iron panel noted continue to monitor vitals closely orthostatic vitals follow H&H Q6H next one at 6 pm Avoid non-steroidal anti-inflammatory drugs, anti-platelets, anticoagulants (2) GI bleeding Current Visit: Yes Status: Acute Assessment and Plan: likely upper GI ? secondary to NSAID use vs AVM rule out malignancy and other etiologies occult blood positive management as above (3) Elevated troponin Current Visit: Yes Status: Acute Assessment and Plan: most likely secondary to supple vs demand mismatch from tachycardia secondary to severe anemia Troponin 0.14-0.15-0.19-0.17 Continues to remain chest pain-free TTE pending Continue statins We will hold off anticoagulation and antiplatelets as she has GI bleed and severe anemia. We will consult cardiology once her severe anemia/GI bleed has stabilized. (4) CAP (community acquired pneumonia) Current Visit: Yes Status: Acute Assessment and Plan: Was started on ceftriaxone and azithromycin Urine antigens are negative, discontinued azithromycin and continue with ceftriaxone blood cx in process sputum cx pending (5) Thrombocytopenia Current Visit: Yes Status: Acute Assessment and Plan: ? secondary to poor nutrition and NSAID use will rule out other etiologies ( has macrocytic anemia ? MDS) We will consult hematology (6) Underweight Current Visit: Yes Status: Acute Assessment and Plan: BMI is 17.3 nutrition consult (7) Macrocytosis Current Visit: Yes Status: Acute Assessment and Plan: b12 within normal limit Folate pending Hematology consulted will follow (8) DVT prophylaxis Current Visit: Yes Status: Acute Assessment and Plan: scds (9) Back pain Current Visit: Yes Status: Acute Assessment and Plan: lidocaine patch tylenol for pain control lumbar spine: IMPRESSION: Mild degenerative changes with grade 1 anterolisthesis of L4 on L5. Transitional lumbosacral vertebral body is incidentally noted. - Time Spent with Patient Total time spent is greater than 50% in coordination of care (as documented) at patient's floor/unit and/or counseling patient: 25 - 35 minutes Plan of Care Discussed with: patient Internal Medicine: Result - Labs CBC & Chem 7: 11/15/18 06:45 11/15/18 01:09 Labs: Short CBC 11/14/18 11/14/18 11/14/18 Range/Units 11:51 14:20 20:11 WBC 14.0 H 12.8 H (4.3-11.1) K/mcL Hgb 5.6 L* 4.9 L* 9.1 L D (11.5-15.4) g/dL Hct 18.8 L 16.9 L 28.8 L (35.3-44.9) % Plt Count 121 L 115 L (140-400) K/mcL Neutrophils # 11.9 H 10.6 H (1.6-8.9) K/mcL 11/15/18 11/15/18 Range/Units 01:09 06:45 WBC 12.7 H (4.3-11.1) K/mcL Hgb 10.5 L 9.8 L (11.5-15.4) g/dL Hct 32.6 L 30.1 L (35.3-44.9) % Plt Count 65 L (140-400) K/mcL Neutrophils # 10.8 H (1.6-8.9) K/mcL BMP 11/14/18 11/14/18 11/15/18 11:51 14:20 01:09 Sodium 138 136 135 L Potassium 3.7 3.8 3.5 Chloride 108 H 108 H 110 H Carbon Dioxide 25 25 18 L BUN 23 23 16 Creatinine 0.76 0.73 0.61 Glucose 94 92 83 Calcium 8.2 L 7.8 L 7.0 L Cardiac Enzymes 11/14/18 11/14/18 11/14/18 Range/Units 11:51 20:11 23:50 Troponin I 0.14 H* 0.15 H* 0.19 H* (< 0.04) ng/mL 11/15/18 Range/Units 06:45 Troponin I 0.17 H* (< 0.04) ng/mL Urine 11/14/18 Range/Units 22:20 Urine Color Yellow (Yellow) Urine Clarity Clear (Clear) Urine pH 6.0 (5.0-8.0) pH Units Ur Specific [place] 1.023 (1.010-1.025) Urine Protein Negative (Neg-Trace) mg/dL Urine Glucose (UA) Normal (Normal) mg/dL - ABG Interpretation ABG results: PT/INR, D-dimer PT 14.0 Seconds (9.4-12.1) H 11/14/18 11:41 - Impressions Impressions Lumbar Spine X-Ray 11/14/18 12:03 IMPRESSION: Mild degenerative changes with grade 1 anterolisthesis of L4 on L5. Transitional lumbosacral vertebral body is incidentally noted. D/ / 11/14/2018 13:02:35 Sherrill Mcgarry MD / [facility] Interpreting Provider: Sherrill Mcgarry MD Chest X-Ray 11/14/18 13:22 IMPRESSION: Patchy left basilar airspace disease concerning for pneumonia. Radiographic follow-up recommended to ensure resolution. D/ / 11/14/2018 13:59:28 Jason Caballero MD / [facility] Interpreting Provider: Jason Caballero MD Consult Discharge Plan - Plan Referrals: Monica Vernon, LINE DIRECTOR [Primary Care Provider] - 11/24/18 9:00 am (2) GI bleeding Qualifiers: Qualified Code(s): K92.2 - Gastrointestinal hemorrhage, unspecified (4) CAP (community acquired pneumonia) Qualifiers: Qualified Code(s): J18.1 - Lobar pneumonia, unspecified organism (9) Back pain Qualifiers: Qualified Code(s): M54.5 - Low back pain; G89.29 - Other chronic pain
[2018-11-15] MEDS ORDERED: Propofol 500 MG/50 ML INFUS..BTL ONE (09:55)
[2018-11-15] MEDS ORDERED: Lidocaine -MPF 2% 2 ML VIAL ONE (10:03)
[2018-11-15] MEDS: Cholecalciferol (D-3) 1,000 UNIT (25MCG) TABLET PO SCH (11:17)
[2018-11-15 11:57] LABS: Hematocrit 31.4 % (35.3-44.9); Hemoglobin 10.1 g/dL (11.5-15.4)
--- NOTE | 2018-11-15 11:58 | Anesthesia Evaluation Post Op ---
Date of Encounter: 11/15/18 Time of Encounter: 11:30 - Vital Signs Vital Signs: Vital Signs/O2 Sat/Glucose, Most Current Temp Pulse Resp BP Pulse Ox 11/15/18 11:16 97.3 F L 83 18 111/56 96 11/15/18 09:18 89 16 113/54 98 - Lungs Lungs: Clear Ascult./Percussion - Airway Airway: Non-obstructed - Cardiovascular Regular Rate - Mental Status Mental Status: Alert & Oriented, Answers Appropriately - Pain Pain Scale: 0 - Nausea Vomiting Nausea Vomiting: Not Present - Hydration Hydration: NPO - Discharge PostOp Status: Transfer Patient to floor
[2018-11-15] MEDS: Azithromycin 500 MG in D5% in Water 250 ML IVPB SCH (15:01)
[2018-11-15 17:41] LABS: Hematocrit 28.8 % (35.3-44.9); Hemoglobin 9.5 g/dL (11.5-15.4)
[2018-11-16 04:21] LABS: Red Cell Distribution Width 16.6 % (11.5-14.5)
[2018-11-16 04:23] LABS: Immature Platelets 10.4 % (1.1-6.1)
[2018-11-16 04:32] LABS: Hematocrit 35.4 % (35.3-44.9); Hemoglobin 11.4 g/dL (11.5-15.4); Mean Corpuscular HGB Conc 32.2 g/dL (31.6-35.5); Mean Corpuscular Hemoglobin 30.3 pg (28.0-33.3); Mean Corpuscular Volume 94.1 fL (83.0-100.0); Mean Platelet Volume 13.7 fL (9.4-12.4); Red Blood Count 3.76 M/mcL (3.82-4.97)
[2018-11-16] MEDS: cefTRIAXone 2,000 MG in Water for inj. (sterile) 20 ML IVPB SCH (08:41)
[2018-11-16] MEDS: Cholecalciferol (D-3) 1,000 UNIT (25MCG) TABLET PO SCH (08:41)
--- NOTE | 2018-11-16 08:55 | Internal Med Progress Note ---
Hospitalist Progress Note - Encounter Date of Encounter: 11/16/18 Time of Encounter: 08:00 - Subjective Interval History: Patient was seen and examined at bedside. Has no complaints. Denies any nausea, vomiting or diarrhea. Has had no hematemesis, melena or hematochezia. All cushions answered. Has had no chest pain, palpitations or shortness of erica th. I discussed with cardiology and hematology will see her and give us further recommendations for thrombocytopenia, anemia and elevated troponins. She does not agreement. Tolerating by mouth diet. Has no pain - Exam Vitals: Temp Pulse Resp BP Pulse Ox 98.1 F 79 18 132/62 97 11/16/18 07:45 11/16/18 07:45 11/16/18 07:45 11/16/18 07:45 11/16/18 04:07 Exam: General: Patient is alert, oriented, no acute distress, thin Head: atraumatic, normocephalic, dark discoloration of her face, slight discoloration around the eye and for head. Eye: normal appearance, PERRL, no scleral icterus, no conjunctival pallor ENT: mucous membranes moist, normal external ear exam Neck: normal inspection, trachea midline, full ROM, Chest: normal inspection, symmetric chest rise Respiratory: Good respiratory effort. Bilateral breath sounds are clear without wheezing, crackles, or rhonchi. Cardiovascular: tachcardic . s1 and s2 No clicks, rubs, gallops, ? murmur at the right 2nd ICS Abdomen: Bowel sounds present normoactive x-4 quadrants. Abdomen is soft, nondistended. no Epigastric tenderness. No guarding or rebound. No organomegaly noted, thin musculoskeletal: Spontaneously moving all extremities. no edema, no calf tenderness Skin: warm, dry, intact. Neuro: Alert and oriented x4. no focal deficit Psych: Patient's affect is normal - Assessment and Plan (1) Acute blood loss anemia Current Visit: Yes Status: Acute Assessment and Plan: most likley secondary to GI bleed will rule out other etiologies ( maligancy) - hemoglobin was 14 in 11/2017 Status post 3 PRBC with improvement of her H&H to 11.4 from 4.9 occult blood positive GI on board for EGD and colonoscopy on 11/15 PO protonix B12 within normal limit, iron panel noted continue to monitor vitals closely orthostatic vitals negative as per nursing staff (2) GI bleeding Current Visit: Yes Status: Acute Assessment and Plan: likely upper GI ? secondary to NSAID use vs AVM rule out malignancy and other etiologies occult blood positive management as above (3) Elevated troponin Current Visit: Yes Status: Acute Assessment and Plan: most likely secondary to supple vs demand mismatch from tachycardia secondary to severe anemia Troponin 0.14-0.15-0.19-0.17 Continues to remain chest pain-free TTE below Continue statins cardiology consulted TTE: LVEF 60-65%. Moderate concentric left ventricular hypertrophy. Mild left ventricular diastolic dysfunction. Normal right ventricular structure and function. Moderate aortic stenosis. Moderate aortic regurgitation. Unable to estimate RVSP due to lack of TR jet. (4) CAP (community acquired pneumonia) Current Visit: Yes Status: Acute Assessment and Plan: Was started on ceftriaxone and azithromycin Urine antigens are negative, discontinued azithromycin and continue with ceftriaxone blood cx NGTD sputum cx pending CXR in one week to ensure resolution. (5) Thrombocytopenia Current Visit: Yes Status: Acute Assessment and Plan: ? secondary to poor nutrition and NSAID use will rule out other etiologies ( has macrocytic anemia ? MDS) hematology consulted will send peripheral smear (6) Aortic stenosis Current Visit: Yes Status: Acute Assessment and Plan: moderate and AR on TTE cardiology consulted will follow recs (7) Underweight Current Visit: Yes Status: Acute Assessment and Plan: BMI is 17.3 nutrition consulted (8) Macrocytosis Current Visit: Yes Status: Acute Assessment and Plan: b12 within normal limit Folate pending Hematology consulted (9) Back pain Current Visit: Yes Status: Resolved Assessment and Plan: lidocaine patch tylenol for pain control lumbar spine: IMPRESSION: Mild degenerative changes with grade 1 anterolisthesis of L4 on L5. Transitional lumbosacral vertebral body is incidentally noted. (10) DVT prophylaxis Current Visit: Yes Status: Acute Assessment and Plan: scds - Time Spent with Patient Total time spent is greater than 50% in coordination of care (as documented) at patient's floor/unit and/or counseling patient: 25 - 35 minutes Plan of Care Discussed with: patient Internal Medicine: Result - Labs CBC & Chem 7: 11/16/18 03:52 11/15/18 01:09 Labs: Short CBC 11/15/18 11/15/18 11/16/18 Range/Units 11:43 17:25 03:52 WBC 14.0 H (4.3-11.1) K/mcL Hgb 10.1 L 9.5 L 11.4 L D (11.5-15.4) g/dL Hct 31.4 L 28.8 L 35.4 (35.3-44.9) % Plt Count 66 L (140-400) K/mcL - ABG Interpretation ABG results: PT/INR, D-dimer PT 14.0 Seconds (9.4-12.1) H 11/14/18 11:41 - Impressions Impressions Lumbar Spine X-Ray 11/14/18 12:03 IMPRESSION: Mild degenerative changes with grade 1 anterolisthesis of L4 on L5. Transitional lumbosacral vertebral body is incidentally noted. D/ / 11/14/2018 13:02:35 [facility]rill [facility] MD / [facility] Interpre[facility] Provider: Sherrill Mcgarry MD Echocardiogram 11/14/18 18:11 Impressions: LVEF 60-65%. Moderate concentric left ventricular hypertrophy. Mild left ventricular diastolic dysfunction. Normal right ventricular structure and function. Moderate aortic stenosis. Moderate aortic regurgitation. Unable to estimate RVSP due to lack of TR jet. Left Ventricular Wall Motion: Rest Echo Findings All wall segments showed normal motion. Findings: Study Quality * Technically adequate exam. ECG Findings * Normal sinus rhythm. Left Ventricle * LVEF 60-65%. * Normal LV chamber size and systolic function. * Moderate concentric left ventricular hypertrophy. * Mild left ventricular diastolic dysfunction. Right Ventricle * Normal right ventricular structure and function. Left Atrium * Normal left atrial size. Right Atrium * Normal right atrial size. Interatrial Septum * Interatrial septum not well evaluated. Aortic Valve * Moderately calcified aortic valve leaflets. * Moderate aortic stenosis. * Mean gradient 38 mmHg. * Moderate aortic regurgitation. Mitral Valve * Moderate mitral annular calcification * Trace mitral regurgitation. * No mitral stenosis. Tricuspid Valve * Normal tricuspid valve structure. * No tricuspid stenosis. * Trace tricuspid regurgitation. * Unable to estimate RVSP due to lack of TR jet. * Estimated RA pressure is 8 mmHg. Pulmonic Valve * Pulmonic valve is not well visualized. * No pulmonic stenosis. * Trace pulmonic regurgitation. Aorta * Normally sized aortic root. Pericardium * There is a trivial pericardial effusion present. IVC * The IVC is not dilated. * < 50% respiratory change. Consult Discharge Plan - Plan Referrals: Monica Vernon CNP [Primary Care Provider] - 11/24/18 9:00 am (2) GI bleeding Qualifiers: GI bleed type/associated pathology: unspecified gastrointestinal hemorrhage type Qualified Code(s): K92.2 - Gastrointestinal hemorrhage, unspecified (4) CAP (community acquired pneumonia) Qualifiers: Laterality: left Lung location: lower lobe of lung Qualified Code(s): J18.1 - Lobar pneumonia, unspecified organism (6) Aortic stenosis Qualifiers: Cardiac valve disease etiology: etiology unspecified Qualified Code(s): I35.0 - Nonrheumatic aortic (valve) stenosis (9) Back pain Qualifiers: Back pain location: low back pain Chronicity: chronic Back pain laterality: bilateral Sciatica presence: without sciatica Qualified Code(s): M54.5 - Low back pain; G89.29 - Other chronic pain
--- NOTE | 2018-11-16 09:22 | Cardiology Consult Note ---
<Lam Espinoza R - Last Filed: 11/16/18 09:20> Date of Encounter: 11/16/18 Time of Encounter: 09:20 Assessment and Plan (1) Elevated troponin Current Visit: Yes Status: Acute Troponins 0.14, 0.15, 0.19, 0.17 in setting of GI bleed with HGB as low as 4.9 and PNA. Suspect demand ischemia, nondiagnostic for ACS. TTE LVEF 60-65%. Moderate cLVH, mild LVDD. Moderate aortic stenosis. Moderate aortic regurgitation. ECG on admission with flatted ST anterolateral segments, now improved. Suspect this was secondary to her anemia as well. Pt denies chest pain. No hx of CAD. Anticipate sign off once seen and evaluated by Dr. Moses. (2) Aortic stenosis Current Visit: Yes Status: Acute TTE with moderate aortic stenosis and moderate aortic regurgitation. No urgent or severe findings. Would recommend routine outpt follow-up for continued monitoring of AV. Qualifiers: Cardiac valve disease etiology: etiology unspecified Qualified Code(s): I35.0 - Nonrheumatic aortic (valve) stenosis Discussion w patient/family: The assessment and plan as outlined above was discussed with the patient and/or family members who expressed understanding and agreement. All questions were answered. Thank you for involving us in the care of your patient. Please call with any questions. I will discuss all the above with Dr. Moses and make changes as necessary. History of Present Illness Consult date: 11/16/18 Consult reason: elevated troponin Chief complaint: anemia, weakness History of present illness: Ms. Martínez is a 73 year old female with no significant past medical history that presented to the ED for abnormal labs. PCP had ordered routine labs. She was called and instructed to report to ED. HGB as low as 4.9--now s/p transfusions. Reports she has been more weak over the past month and more short of breath on exertion. She denies chest pain. Also now being treated for PNA. Troponins 0.14, 0.15, 0.19, 0.17 and cardiology consulted for further recs. TTE LVEF 60-65%. Moderate cLVH, mild LVDD, Normal RV structure and function. Moderate aortic stenosis. Moderate aortic regu rgitation. Unable to estimate RVSP due to lack of TR jet. Past Med Surg Social Fam HX - Past Medical History Medical history: hyperlipidemia, thyroid disease Psychiatric history: no psych history - Past Surgical History Additional surgical history: endoscopy - Social History Smoking Status: Never smoker Smokeless Tobacco Status: No Alcohol use: none Drug use: none - Family History Mother Adopted: No Living Status: Cause of : hip fx complications Hx Family Cardiac Disorders: No Hx Family Respiratory Disorders: No Hx Family Cancer: No Hx Family GI Disorders: No Hx Family Genitourinary Disorders: No Hx Family Endocrine Disorder: No Hx Family Musculoskeletal Disorders: No Hx Family Neuromuscular Disorders: No Hx Family Neurologic Disorders: No Father History Unknown: Yes Hx Family Cardiac Disorders: No Hx Family Respiratory Disorders: Yes (TB ) Hx Family Cancer: No Hx Family GI Disorders: No Hx Family Genitourinary Disorders: No Hx Family Endocrine Disorder: No Hx Family Musculoskeletal Disorders: No Hx Family Neuromuscular Disorders: No Hx Family Neurologic Disorders: No Hx Family HEENT Disorders: No Hx Family Autoimmune Disorders: No Medications and Allergies Cholecalciferol (D-3) [Vitamin D] 1,000 unit PO DAILY 11/14/18 [History] Levothyroxine [Synthroid] 50 mcg PO Q48H 11/14/18 [History] Levothyroxine [Synthroid] 75 mcg PO Q48H 11/14/18 [History] Lovastatin [Mevacor] 20 mg PO DAILY 11/14/18 [History] Allergy/AdvReac Type Severity Reaction Status Date / Time No Known Allergies Allergy Verified 06/04/16 12:54 All Systems Review: The remainder of the systems were reviewed and are negative - Constitutional Constitutional: weakness - Cardiovascular Cardiovascular: as per HPI, dyspnea on exertion Physical Examination Vital Signs, Last 4 Hours Temp Pulse Resp BP 11/16/18 07:45 98.1 F 79 18 132/62 Vital Signs Temp Pulse Resp BP Pulse Ox 11/16/18 07:45 98.1 F 79 18 132/62 11/16/18 04:07 97.8 F 99 17 119/52 97 11/15/18 20:25 97.5 F L 99 16 110/63 97 11/15/18 20:01 97.3 F L 95 16 104/50 96 11/15/18 19:39 88 11/15/18 16:00 98.1 F 99 18 96/60 95 11/15/18 11:16 97.3 F L 83 18 111/56 96 Intake and Output 11/15/18 11/16/18 11/16/18 23:59 07:59 15:59 Intake Total 300 / 2000 120 / 360 240 / 360 Output Total 850 / 850 Balance 300 / 1140 -730 / -490 240 / -490 Intake: Oral 300 / 780 120 / 360 240 / 360 Output: Urine 850 / 850 Other: Meal Dinner Breakfast Percent of Meal Consumed 10% 100% Weight 46.9 kg Patient Weight 11/16/18 23:59 Weight 46.9 kg General: Conversant, No Apparent Distress HEENT: Atraumatic, Normocephaly, Mucus Membranes Moist Neck: No JVD, Normal carotid pulses Cardiac: Reg Rate and Rhythm, Normal S1 and S2, No Murmur Lungs: Normal Breath Sounds, No Wheeze, Rales, Rhonchi Neuro: Alert and responsive, No focal deficits noted Abdomen: Soft, Non-Tender Skin: No rashes noted on visualized skin Musculoskeletal: No Chest Wall Tenderness Extremities: No Clubbing, No Cyanosis, No Edema, Normal Pulses Results 11/16/18 03:52 11/15/18 01:09 Lab Results 11/15/18 11/15/18 11/16/18 11:43 17:25 03:52 WBC 14.0 H Hgb 10.1 L 9.5 L 11.4 L D Hct 31.4 L 28.8 L 35.4 Plt Count 66 L Short CBC 11/16/18 11/15/18 11/15/18 Range/Units 03:52 17:25 11:43 WBC 14.0 H (4.3-11.1) K/mcL Hgb 11.4 L D 9.5 L 10.1 L (11.5-15.4) g/dL Hct 35.4 28.8 L 31.4 L (35.3-44.9) % Plt Count 66 L (140-400) K/mcL Impressions Echocardiogram 11/14/18 18:11 Impressions: LVEF 60-65%. Moderate concentric left ventricular hypertrophy. Mild left ventricular diastolic dysfunction. Normal right ventricular structure and function. Moderate aortic stenosis. Moderate aortic regurgitation. Unable to estimate RVSP due to lack of TR jet. Left Ventricular Wall Motion: Rest Echo Findings All wall segments showed normal motion. Findings: Study Quality * Technically adequate exam. ECG Findings * Normal sinus rhythm. Left Ventricle * LVEF 60-65%. * Normal LV chamber size and systolic function. * Moderate concentric left ventricular hypertrophy. * Mild left ventricular diastolic dysfunction. Right Ventricle * Normal right ventricular structure and function. Left Atrium * Normal left atrial size. Right Atrium * Normal right atrial size. Interatrial Septum * Interatrial septum not well evaluated. Aortic Valve * Moderately calcified aortic valve leaflets. * Moderate aortic stenosis. * Mean gradient 38 mmHg. * Moderate aortic regurgitation. Mitral Valve * Moderate mitral annular calcification * Trace mitral regurgitation. * No mitral stenosis. Tricuspid Valve * Normal tricuspid valve structure. * No tricuspid stenosis. * Trace tricuspid regurgitation. * Unable to estimate RVSP due to lack of TR jet. * Estimated RA pressure is 8 mmHg. Pulmonic Valve * Pulmonic valve is not well visualized. * No pulmonic stenosis. * Trace pulmonic regurgitation. Aorta * Normally sized aortic root. Pericardium * There is a trivial pericardial effusion present. IVC * The IVC is not dilated. * < 50% respiratory change. Active Medications Acetaminophen (Tylenol) 650 mg PO Q6HR PRN PRN Reason: Pain Stop: 11/17/18 12:01 Azithromycin 500 mg/ Dextrose 250 mls @ 252 mls/hr IVPB Q24H REPLACED BY [facility] Stop: 05/17/19 15:01 Last Admin: 11/15/18 15:01 Dose: 252 mls/hr Documented by: Ceftriaxone Sodium 2,000 mg/ (Sterile Water) 20 mls @ 600 mls/hr IVPB DAILY REPLACED BY [facility] Stop: 05/17/19 09:01 Last Admin: 11/16/18 08:41 Dose: 600 mls/hr Documented by: Levothyroxine Sodium (Synthroid) 75 mcg PO Q48H REPLACED BY [facility] Stop: 05/19/19 06:31 Levothyroxine Sodium (Synthroid) 100 mcg PO Q48H REPLACED BY [facility] Stop: 05/18/19 06:31 Last Admin: 11/16/18 05:28 Dose: 100 mcg Documented by: Naloxone HCl (Narcan) 0.4 mg IVP Q2MPRN PRN PRN Reason: SEE COMMENTS Stop: 05/16/19 14:30 Omeprazole (Prilosec) 40 mg PO DAILY@0730 REPLACED BY [facility]; Protocol Stop: 05/18/19 07:31 Last Admin: 11/16/18 08:41 Dose: 40 mg Documented by: Simvastatin (Zocor) 10 mg PO DAILY [facility] Stop: 05/17/19 09:01 Last Admin: 11/16/18 08:41 Dose: 10 mg Documented by: Vitamin D (Vitamin D) 1,000 unit PO DAILY [facility] Stop: 05/17/19 09:01 Last Admin: 11/16/18 08:41 Dose: 1,000 unit Documented by: - Imaging and Cardiology Echo: report reviewed - EKG Interpretation EKG results cardiology: personally reviewed Consult Discharge Plan - Plan Referrals: Monica Vernon, INVESTIGATION MANAGER [Primary Care Provider] - 11/24/18 9:00 am <Rich Moses - Last Filed: 11/16/18 19:28> Date of Encounter: 11/16/18 - Attending Attestation Patient was seen and evaluated independently by me. Findings, assessment and plan were discussed at length with patient, questions answered. Agree with nurse practitioner's/resident's documentation. Addition as follows, 73yoCF ho hypothyroidism, HLD. P/w abn lab from PCP. Hb5. s/p PRBC. EGD/[place] duodenal angioectasia s/p APC. Consulted for trop max 0.2, mod . Denied cp, dyspnea, syncope, palpitations. ECG SR, NS STT. TTE EF 60-65%, mod LVH, RV nl, mod and mod AI, no TR jet. VSS, CTA, RR tachy, no LE edema. A: Mild troponin elevation, due to mismatch Moderate and AI, no ho syncope, angina or CHF. Severe blood loss anemia s/p APC of duodenal angioectasia. P: no further cardiac inpatient w/u f/u cardiology clinic for Rich Moses MD, PhD Assessment and Plan Discussion w patient/family: The assessment and plan as outlined above was discussed with the patient and/or family members who expressed understanding and agreement. All questions were answered. Thank you for involving us in the care of your patient. Please call with any questions. History of Present Illness History of present illness: Ms. Martínez is a 73 year old female All Systems Review: The remainder of the systems were reviewed and are negative Physical Examination Vital Signs, Last 4 Hours Temp Pulse Resp BP 11/16/18 16:22 98.3 F 107 18 119/67 Results 11/16/18 03:52 11/15/18 01:09 Lab Results 11/16/18 11/16/18 03:49 03:52 WBC 14.0 H Hgb 11.4 L D Hct 35.4 Plt Count 66 L Total Bilirubin 0.6 AST 61 H ALT 15 Alkaline Phosphatase 410 H
[2018-11-16 11:03] LABS: Albumin 2.4 g/dL (3.5-5.7); Albumin/Globulin Ratio 0.8 (1.1-2.2); Bilirubin,Direct 0.3 mg/dL (0.0-0.2); Bilirubin,Indirect 0.3 mg/dL (0.0-1.2); Bilirubin,Total 0.6 mg/dL (0.3-1.0); Globulin 2.9 g/dL (2.4-3.5); Total Protein 5.3 g/dL (6.4-8.9)
--- NOTE | 2018-11-16 14:46 | Oncology Inp Consult Note ---
Date of Encounter: 11/16/18 Time of Encounter: 14:45 - Data of Consult Requesting Physician: Angeline Nick MD Primary Care Provider: Monica Vernon - Consult Narrative Reason for consult: Anemia/ Thrombocytopenia History of present illness: A: 1. Iron deficiency anemia 2. Thrombocytopenia 3. Macrocytosis 4. Aortic stenosis 5. Demand ischemia P: -S/p colonoscopy on 11/15/18. Will follow up on pathology from resections. -Fe 19, % sat 5, transferrin 260, ferritin 58. Please administer Venofer 300 mg IV. -Please transfuse 1 unit of PRBCs for Hgb < 7.0 -B12 862. Folate 7.3, please start on folic acid 1 mg PO daily. -Macrocytosis likely 2/2 to hypothyroidism. TSH elevated at 21.0. Currently being managed by admitting team. -Thrombocytopenia could be 2/2 HIT (however less likely based on such an acute drop in platelets) vs cirrhosis vs NSAID use vs acute infectious process (CAP) -Hold anticoagulation if plts < 50, currently not on DVT ppx. Plts 66 on most recent check. -Please check LDH, haptoglobin, reticulocyte count, blood smear, SPEP, serum RAFAEL, serum FLCS, QIMGs, and UPEP -Please also obtain abdominal US (look at spleen and liver) for evaluation of ci rrhosis and splenomegaly Thank you for the consult. We will continue to follow along with you. HPI: The patient is a 73 yo WF w/ no significant past medical history who p/w SOB w/ exertion, fatigue, and weakness over the past month. On admission, she was found to have an H/H of 9.1/ 28.8 with an MCV of 104.3 and her FOBT was positive. As a result, GI was c/s and a colonoscopy was performed. It revealed 2, 10 mm nonbleeding polyps in the sigmoid colon, 1, 3 mm, nonbleeding polyp in the descending colon, 1, 2 mm nonbleeding polyp in the ascending colon, 1, 8 mm, nonbleeding polyp in the cecum. All the polyps were resected. A single colonic angioectasia was seen and was treated with APC. Diverticulosis in the sigmoid colon was also present. We have been c/s for evaluation of iron deficiency anemia. Today, she endorses mild fatigue, but otherwise denies any fevers, chills, chest pain, or SOB. ROS: 12 point ROS performed, pertinent positives in HPI. PE Gen: AAO x 3, in NAD HEENT: NC/AT, PERRLA, EOMI, MMM CV: RRR, no MRGs Lungs: CTAB, no w/r/r ABD: Soft, NT, ND, +BS Ext: No c/c/e. Neuro: No focal deficits present at this time. AAOx3. Past Med Surg Social Fam HX - Past Medical History Medical history: hyperlipidemia, thyroid disease Psychiatric history: no psych history - Past Surgical History Additional surgical history: endoscopy - Social History Smoking Status: Never smoker Smokeless Tobacco Status: No Alcohol use: none Drug use: none - Family History Mother Adopted: No Living Status: Cause of : hip fx complications Hx Family Cardiac Disorders: No Hx Family Respiratory Disorders: No Hx Family Cancer: No Hx Family GI Disorders: No Hx Family Genitourinary Disorders: No Hx Family Endocrine Disorder: No Hx Family Musculoskeletal Disorders: No Hx Family Neuromuscular Disorders: No Hx Family Neurologic Disorders: No Father History Unknown: Yes Hx Family Cardiac Disorders: No Hx Family Respiratory Disorders: Yes (TB ) Hx Family Cancer: No Hx Family GI Disorders: No Hx Family Genitourinary Disorders: No Hx Family Endocrine Disorder: No Hx Family Musculoskeletal Disorders: No Hx Family Neuromuscular Disorders: No Hx Family Neurologic Disorders: No Hx Family HEENT Disorders: No Hx Family Autoimmune Disorders: No Medications and Allergies Cholecalciferol (D-3) [Vitamin D] 1,000 unit PO DAILY 11/14/18 [History] Levothyroxine [Synthroid] 50 mcg PO Q48H 11/14/18 [History] Levothyroxine [Synthroid] 75 mcg PO Q48H 11/14/18 [History] Lovastatin [Mevacor] 20 mg PO DAILY 11/14/18 [History] Allergy/AdvReac Type Severity Reaction Status Date / Time No Known Allergies Allergy Verified 06/04/16 12:54 Oncology Inpatient Results Labs: 11/14/18 11/14/18 11/15/18 14:20 14:20 01:09 WBC RBC Hgb Hct MCV MCH MCHC RDW Plt Count MPV Immature Plt Fraction Sodium 135 L Potassium 3.5 Chloride 110 H Carbon Dioxide 18 L BUN 16 Creatinine 0.61 Est GFR ( Amer) > 60 Est GFR (Non-Af Amer) > 60 BUN/Creatinine Ratio 26 Glucose 83 Calculated Osmolality 280 Calcium 7.0 L Iron 19 L % Saturation 5 L Transferrin 260 Ferritin 58 Vitamin B12 862 11/16/18 03:52 WBC 14.0 H RBC 3.76 L Hgb 11.4 L D Hct 35.4 MCV 94.1 MCH 30.3 MCHC 32.2 RDW 16.6 H Plt Count 66 L MPV 13.7 H Immature Plt Fraction 10.4 H Sodium Potassium Chloride Carbon Dioxide BUN Creatinine Est GFR ( Amer) Est GFR (Non-Af Amer) BUN/Creatinine Ratio Glucose Calculated Osmolality Calcium Iron % Saturation Transferrin Ferritin Vitamin B12 ECHO 11/14/2018 Impressions: LVEF 60-65%. Moderate concentric left ventricular hypertrophy. Mild left ventricular diastolic dysfunction. Normal right ventricular structure and function. Moderate aortic stenosis. Moderate aortic regurgitation. Unable to estimate RVSP due to lack of TR jet. Consult Discharge Plan - Plan Referrals: Monica Vernon CNP [Primary Care Provider] - 11/24/18 9:00 am Inpatient Charges Provider: Dr. Travon Ann Consult - Inpatient: [id number]
[2018-11-16] MEDS: Azithromycin 500 MG in D5% in Water 250 ML IVPB SCH (15:17)
[2018-11-16 16:39] LABS: Immature Reticulocyte % 26.7 % (11.0-38.0)
[2018-11-16 16:41] LABS: Retculocyte # 0.17 M/mcL (0.05-0.10); Reticulocyte % 4.8 % (1.6-2.8)
[2018-11-17 05:52] LABS: Hemoglobin 9.6 g/dL (11.5-15.4); Mean Corpuscular Volume 94.9 fL (83.0-100.0)
[2018-11-17 05:54] LABS: Hematocrit 29.8 % (35.3-44.9); Mean Corpuscular HGB Conc 32.2 g/dL (31.6-35.5); Mean Corpuscular Hemoglobin 30.6 pg (28.0-33.3); Red Blood Count 3.14 M/mcL (3.82-4.97); Red Cell Distribution Width 16.7 % (11.5-14.5); White Blood Count 11.2 K/mcL (4.3-11.1)
[2018-11-17 07:15] LABS: Platelet Count 42 K/mcL (140-400)
[2018-11-17] MEDS: cefTRIAXone 2,000 MG in Water for inj. (sterile) 20 ML IVPB SCH (08:23)
[2018-11-17] MEDS: Folic Acid 1 MG TABLET PO SCH (08:26)
[2018-11-17] MEDS: Cholecalciferol (D-3) 1,000 UNIT (25MCG) TABLET PO SCH (08:26)
[2018-11-17 09:08] LABS: Hepatitis B Surface Antibody < 3.10 mIU/mL
[2018-11-17 09:18] LABS: Hepatitis B Surface Antigen Nonreactive (Nonreactive)
[2018-11-17 09:47] LABS: Hepatitis B Core IgM Nonreactive (Nonreactive); Hepatitis C Virus Antibody Nonreactive (Nonreactive)
[2018-11-17] MEDS ORDERED: Gadolinium Contrast Agent (WT Based) IV PRN (11:15)
--- NOTE | 2018-11-17 11:24 | Internal Med Progress Note ---
Hospitalist Progress Note - Encounter Date of Encounter: 11/17/18 Time of Encounter: 08:00 - Subjective Interval History: Patient was seen and examined at bedside. I discussed the findings of right upper quadrant ultrasound with the patient and discussed that we will need further imaging and she is not stable for discharge. She will be will think about having further workup done as she wishes to go home. Risks and benefits of staying in the hospital and receiving medical treatment was discussed with the patient she understands that if she wants to leave the hospital she will need to sign an AMA form. She is going to think about it. She denies any nausea, vomiting or diarrhea. Has had no history of alcohol use. Denies hepatitis. Tolerating by mouth diet without any difficulty and has had no nausea or vomiting or diarrhea. Continues to deny any melena, hematochezia or hematemesis. Has had no fever, chills, shortness of breath or cough. plan of care was discussed with nursing staff - Exam Vitals: Temp Pulse Resp BP Pulse Ox 97.6 F 87 14 104/56 97 11/17/18 11:05 11/17/18 11:05 11/17/18 11:05 11/17/18 11:05 11/17/18 11:05 Exam: General: Patient is alert, oriented, no acute distress, thin Head: atraumatic, normocephalic, dark discoloration of her face, slight discoloration around the eye and for head. Eye: normal appearance, PERRL, no scleral icterus, no conjunctival pallor ENT: mucous membranes moist, normal external ear exam Neck: normal inspection, trachea midline, full ROM, Chest: normal inspection, symmetric chest rise Respiratory: Good respiratory effort. Bilateral breath sounds are clear without wheezing, crackles, or rhonchi. Cardiovascular: tachcardic . s1 and s2 No clicks, rubs, gallops, ? murmur at the right 2nd ICS Abdomen: Bowel sounds present normoactive x-4 quadrants. Abdomen is soft, nondistended. no Epigastric tenderness. No guarding or rebound. No organomegaly noted, thin musculoskeletal: Spontaneously moving all extremities. no edema, no calf tenderness Skin: warm, dry, intact. Neuro: Alert and oriented x4. no focal deficit Psych: Patient's affect is normal - Assessment and Plan (1) Acute blood loss anemia Current Visit: Yes Status: Acute Assessment and Plan: most likley secondary to GI bleed and possible malignancy - hemoglobin was 14 in 11/2017 Status post 3 PRBC occult blood positive GI on board for EGD and colonoscopy on 11/15- colonoscopy with angioectasia and multiple polyps- path report pending F/u in 3 years . EGD with few angiectasia in duodenum, small hiatal hernia PO protonix B12 within normal limit, iron panel noted on folate replacement continue to monitor vitals closely orthostatic vitals negative as per nursing staff hematology on board - work up ordered as per their recs. follow EGD and colonoscopy as above recieved IV iron on 11/16 (2) Choledocholithiasis Current Visit: Yes Status: Acute Assessment and Plan: incidental finding on RUQ US she has no N/V. tolerating PO diet MRCP ordered on [employer] GI on board currently NPO for further imaging/ procedure (3) Liver mass, right lobe Current Visit: Yes Status: Acute Assessment and Plan: MRI liver protocol ordered will follow AFP ordered oncology and GI on board (4) Cirrhosis Current Visit: Yes Status: Acute Assessment and Plan: Cirrhotic appearance of the liver with a trace amount of ascites. unknown etiology ( dendies alcholo use, doubt hemochromatosis as ferritin is negative) ceruplasmin ordered hepatitis panel ordered AFP ordered GI on board - discussed case will follow rest of their recs. (5) GI bleeding Current Visit: Yes Status: Acute Assessment and Plan: mgmt as above (6) Elevated troponin Current Visit: Yes Status: Acute Assessment and Plan: most likely secondary to supple vs demand mismatch from tachycardia secondary to severe anemia Troponin 0.14-0.15-0.19-0.17 Continues to remain chest pain-free TTE below Continue statins cardiology on board OP follow up TTE: LVEF 60-65%. Moderate concentric left ventricular hypertrophy. Mild left ventricular diastolic dysfunction. Normal right ventricular structure and function. Moderate aortic stenosis. Moderate aortic regurgitation. Unable to estimate RVSP due to lack of TR jet. (7) CAP (community acquired pneumonia) Current Visit: Yes Status: Acute Assessment and Plan: Was started on ceftriaxone and azithromycin Urine antigens are negative, discontinued azithromycin continue Abx willl transition to po on discharge blood cx NGTD CXR in one week to ensure resolution. (8) Thrombocytopenia Current Visit: Yes Status: Acute Assessment and Plan: ? secondary to cirrhosis RUQ US with cirrhosis Avoid anticoagulation and antiplatelets hematology on board peripheral smear pending (9) Aortic stenosis Current Visit: Yes Status: Acute Assessment and Plan: moderate and AR on TTE cardiology on board (10) Underweight Current Visit: Yes Status: Acute Assessment and Plan: BMI is 17.3 nutrition consulted (11) Macrocytosis Current Visit: Yes Status: Acute Assessment and Plan: b12 within normal limit Folate low was started on replacement Hematology on board (12) DVT prophylaxis Current Visit: Yes Status: Acute Assessment and Plan: scds (13) Back pain Current Visit: Yes Status: Resolved Assessment and Plan: lidocaine patch tylenol for pain control lumbar spine: IMPRESSION: Mild degenerative changes with grade 1 anterolisthesis of L4 on L5. Transitional lumbosacral vertebral body is incidentally noted. - Time Spent with Patient Total time spent is greater than 50% in coordination of care (as documented) at patient's floor/unit and/or counseling patient: Greater than 35 minutes Plan of Care Discussed with: patient Internal Medicine: Result - Labs CBC & Chem 7: 11/17/18 04:51 11/15/18 01:09 Labs: Short CBC 11/17/18 Range/Units 04:51 WBC 11.2 H (4.3-11.1) K/mcL Hgb 9.6 L D (11.5-15.4) g/dL Hct 29.8 L (35.3-44.9) % Plt Count 42 L (140-400) K/mcL - ABG Interpretation ABG results: PT/INR, D-dimer PT 14.0 Seconds (9.4-12.1) H 11/14/18 11:41 - Impressions Impressions Abdomen Ultrasound 11/17/18 09:00 IMPRESSION: 1. Cirrhotic appearance of the liver with a trace amount of ascites. 2. Ill-defined mass in the right hepatic lobe measuring 6.0 x 5.2 x 6.2 cm. Further evaluation with liver mass protocol MRI is recommended. 3. Stones and sludge in the gallbladder, without evidence of acute cholecystitis. 4. Large calculus in the common bile duct measures 12 x 7 mm. The common bile duct is dilated 9 mm, and mild intrahepatic biliary dilation is also suspected. 5. Bilateral pleural effusions are present. D/ / Tong Lindsey MD / Tong Lindsey MD Interpreting Provider: Tong Lindsey MD Consult Discharge Plan - Plan Referrals: Monica Vernon MANAGER PHARMACY [Primary Care Provider] - 11/24/18 9:00 am (4) Cirrhosis Qualifiers: Hepatic cirrhosis type: unspecified hepatic cirrhosis Ascites presence: with ascites Qualified Code(s): K74.60 - Unspecified cirrhosis of liver; R18.8 - Other ascites (5) GI bleeding Qualifiers: GI bleed type/associated pathology: unspecified gastrointestinal hemorrhage type Qualified Code(s): K92.2 - Gastrointestinal hemorrhage, unspecified (7) CAP (community acquired pneumonia) Qualifiers: Laterality: left Lung location: lower lobe of lung Qualified Code(s): J18.1 - Lobar pneumonia, unspecified organism (9) Aortic stenosis Qualifiers: Cardiac valve disease etiology: etiology unspecified Qualified Code(s): I35.0 - Nonrheumatic aortic (valve) stenosis (13) Back pain Qualifiers: Back pain location: low back pain Chronicity: chronic Back pain laterality: bilateral Sciatica presence: without sciatica Qualified Code(s): M54.5 - Low back pain; G89.29 - Other chronic pain
[2018-11-17 12:08] LABS: Chol/HDL Ratio 4.4 (0-4.9)
--- NOTE | 2018-11-17 12:19 | Gastroenterology Progress Note ---
<Joselo Gooden - Last Filed: 11/17/18 12:15> Date of Encounter: 11/17/18 Time of Encounter: 11:55 - Assessment and plan (1) Acute blood loss anemia Status: Acute Assessment and plan: Hgb 9.6 today. Continue to monitor CBC and transfuse PRBC as needed. EGD with small hiatal hernia and few AVM treated with APC. Colonoscopy with five polyps and single AVM treated with APC. Await pathology. (2) Liver mass, right lobe Status: Acute Assessment and plan: Liver mass measuring 6 x 5.2 x 6.2 cm noted on RUQ US. Recommend MRI abdomen with contrast. (3) Cirrhosis Status: Acute Assessment and plan: Noted on RUQ US. Complete liver workup (AFP, alpha-1 antitrypsin, JUAN LUIS, ANCA, ceruloplasmin, F actin, ferritin, AMA, PT/INR). Recommend 2-4 BM daily, use Lactulose PRN. Lifestyle Changes: 1. Total abstinence from alcohol including social drinking. 2. No smoking. 3. Gradual loss of weight. 4. Drink at least 3 cups of coffee due to its antioxidant effects in the liver, it reduces risk of HCC and advance fibrosis. 5. If needed, use less than 2 g/day of Tylenol (in divided doses). 6. Vaccination for Hep A, B, Pneumococcus if not already received and yearly influenza vaccination by PCP. 7. Avoid NSAIDS as can cause kidney damage. 8. Avoid benzodiazepines and other sedatives such as anti-histamines, narcotics etc. as can cause encephalopathy or confusion. 9. Take a late carbohydrate meal supplement as it reduces glucose production from protein breakdown and thus improves nutrition. 10. In cirrhosis, statins are safe to use and also improve portal hypertension and decrease risk of HCC. 11. Screening: Hepatocellular cancer screening: US of liver and AFP every 6 months Qualifiers: Hepatic cirrhosis type: unspecified hepatic cirrhosis Ascites presence: with ascites Qualified Code(s): K74.60 - Unspecified cirrhosis of liver; R18.8 - Other ascites (4) Choledocholithiasis Status: Acute Assessment and plan: RUQ US shows CBD measures 9 mm, and contains a 12 x 7 mm calculus. Patient asymptomatic. MRI abdomen ordered, will await results. Yesterday TB 0.6, AST 61, ALT 15, AP 410. Check hepatic panel. Further recommendation per Dr. Martínez. - Time Spent With Patient Total time spent is greater than 50% in coordination of care (as documented) at patient's floor/unit and/or counseling patient: - Subjective Interval history: Patient sitting in chair without acute complaint. EGD and colonoscopy completed 11/[address] Pimentel. RUQ US showed cirrhosis with trace ascites, right hepatic lobe mass 6 x 5.2 x 6.2 cm, large calculus in the CBD 12 x 7 mm, and CBD dilated to 9 mm. She denies any abdominal pain, nausea, vomiting, melena, or hematochezia. - Constitutional Vitals: Temp Pulse Resp BP Pulse Ox 97.6 F 87 14 104/56 97 11/17/18 11:05 11/17/18 11:05 11/17/18 11:05 11/17/18 11:05 11/17/18 11:05 General appearance: Present: cooperative, A&O X 3, no acute distress, answers questions appropriately - Head Head exam: Present: atraumatic, normocephalic - Eye Eye exam: Present: normal appearance, sclera anicteric - ENT ENT exam: Present: mucous membranes moist - Neck Neck exam general surgery: Present: normal inspection, trachea midline - Respiratory Respiratory exam: Present: CTAB. Absent: rales, rhonchi - Cardiovascular Cardiovascular exam: Present: RRR, +S1, +S2 - GI/Abdominal GI/Abdominal exam: Present: soft, no peritoneal signs. Absent: distended, firm, guarding - Rectal Rectal exam: Present: deferred - Extremities Exam Extremities exam: Present: warm - Neurological Exam Neurological exam: Present: no focal deficits - Psychiatric Psychiatric exam: Present: normal affect, normal mood - Skin Skin exam: Present: dry, intact, normal color, warm Results - Labs CBC & Chem 7: 11/17/18 04:51 11/15/18 01:09 Labs: Last Result 11/17/18 11:38 Triglycerides 150 H Entire Visit 11/17/18 11/17/18 04:51 11:38 Hgb 9.6 L D Hct 29.8 L Amylase 96 Lipase 131 H - ABG ABG results: PT/INR, D-dimer PT 14.0 Seconds (9.4-12.1) H 11/14/18 11:41 - Impressions Impressions Abdomen Ultrasound 11/17/18 09:00 IMPRESSION: 1. Cirrhotic appearance of the liver with a trace amount of ascites. 2. Ill-defined mass in the right hepatic lobe measuring 6.0 x 5.2 x 6.2 cm. Further evaluation with liver mass protocol MRI is recommended. 3. Stones and sludge in the gallbladder, without evidence of acute cholecystitis. 4. Large calculus in the common bile duct measures 12 x 7 mm. The common bile duct is dilated 9 mm, and mild intrahepatic biliary dilation is also suspected. 5. Bilateral pleural effusions are present. D/ / Tong Lindsey MD / Tong Lindsey MD Interpreting Provider: Tong Lindsey MD Consult Discharge Plan - Plan Instructions: Gastrointestinal Bleeding (DC), Anemia (DC) Referrals: Sixto Stroud MD [Partnered Physician] - (Web request entered, Office will call with date and time of appointment. Thank you) Rich Moses MD [Non-Partnered Physician] - (Office will call with date and time of appointment. Thank you) Monica Vernon CNP [Primary Care Provider] - 11/24/18 9:00 am Roman Ann MD [Partnered Physician] - (Office will call with appointment date and time. Thank you) Su Pimentel MD [Partnered Physician] - (Web request. Office will call with date and time of appointment. Thank you) <Stevenson Martínez - Last Filed: 12/15/18 09:02> Date of Encounter: 11/17/18 - Time Spent With Patient Total time spent is greater than 50% in coordination of care (as documented) at patient's floor/unit and/or counseling patient: - Constitutional Vitals: Temp Pulse Resp BP Pulse Ox 97.4 F L 121 26 130/61 95 11/21/18 17:45 11/21/18 20:37 11/21/18 20:37 11/21/18 20:37 11/21/18 20:37 Results - Labs CBC & Chem 7: 11/21/18 17:15 11/20/18 03:55 - ABG ABG results: PT/INR, D-dimer PT 13.0 Seconds (9.4-12.1) H 11/21/18 17:15 - Attending Attestation Patient with cirrhosis, liver mass, anemia. Agree with MRCP to better define liver mass. Plan endoscopy to work up anemia I have personally performed a face to face evaluation on this patient. I have reviewed and agree with the care plan. History and Exam by me shows:
[2018-11-17 13:10] LABS: Albumin 2.3 g/dL (3.5-5.7); Albumin/Globulin Ratio 0.8 (1.1-2.2); Bilirubin,Direct 0.2 mg/dL (0.0-0.2); Bilirubin,Indirect 0.5 mg/dL (0.0-1.2); Bilirubin,Total 0.7 mg/dL (0.3-1.0); Globulin 2.9 g/dL (2.4-3.5); Total Protein 5.2 g/dL (6.4-8.9)
--- NOTE | 2018-11-17 13:17 | Oncology Inp Progress Note ---
<BulmaroCatherine L - Last Filed: 11/17/18 17:20> Date of Encounter: 11/17/18 Time of Encounter: 11:00 (1) Anemia Current Visit: Yes Status: Acute Assessment and plan: Presented with acute anemia hgb 4.9, hgb 9.6 today s/p 3 units PRBC Macrocytosis present on admission EGD with small hiatal hernia and few AVM treated with APC. Colonoscopy with five polyps and single AVM treated with APC. S/P venofer for EDDI LDH- Significant elevated at 883-indirect bili normal-check rut- secondary to liver disease? Haptoglobin-pending Retic- 4.8% Smear-pending SPEP-pending FOBT-positive US of abdomen reveals cirrhosis, ill defined mass right hepatic lobe 6.0x5.2x6.2 cm Plan: Most likely multifactorial- acute blood loss/iron deficiency anemia, setting of malignancy S/P venofer Continue Folic acid PO LDH significantly elevated-secondary to liver burden? Indirect rut 2+ positive, indirect bili is normal- does not appear consistent with TTP given negative rut, will await blood smear Blood smear pending Qualifiers: Anemia type: iron deficiency Qualified Code(s): D50.0 - Iron deficiency anemia secondary to blood loss (chronic) (2) Liver mass, right lobe Current Visit: Yes Status: Acute Assessment and plan: US of abdomen reveals cirrhosis, ill defined mass right hepatic lobe 6.0x5.2x6.2 cm Plan: MRI abdomen liver protocol pending Ordered CT chest and pelvis with IV contrast Hepatitis panel pending GI consulted, appreciate recommendations AFP, CA 19-9, CEA pending Discussed imaging findings with patient, she is questioning whether she desires further workup and treatment, will continue to discuss Further recs pending imaging review (3) Thrombocytopenia Current Visit: Yes Status: Acute Assessment and plan: Platelet count continues to downtrend Multifactorial in setting of cirrhosis, liver mass, suspected blood loss As above, does not appear consistent with HIT/TTP, blood smear is still pending Transfuse for plt <10 or for plt <50 with s/s bleeding or fever Oncology: Subj Interval history: No acute events noted overnight. Patient assisted up to chair. Denies any s/s bleeding. Denies pain, nausea, vomiting, diarrhea. - Constitutional General appearance: cooperative, no acute distress, no febrile - Head Head exam: Present: atraumatic - ENT ENT exam: Present: mucous membranes moist, normal oropharynx - Respiratory Respiratory exam: Present: CTAB. Absent: respiratory distress - Cardiovascular Cardiovascular exam: Present: RRR - GI/Abdominal GI/Abdominal exam: Present: normal bowel sounds, soft. Absent: guarding, rebound, tenderness - Extremities Exam Extremities exam: Present: normal inspection. Absent: calf tenderness - Neurological Exam Neurological exam: Present: alert, oriented X3, no focal deficits, strengths equal and symetr throughout - Psychiatric Psychiatric exam: Present: flat affect - Skin Skin exam: Present: dry, normal color, warm Oncology: Obj Data - Labs CBC & Chem 7: 11/17/18 04:51 11/15/18 01:09 Consult Discharge Plan - Plan Referrals: Monica Vernon CNP [Primary Care Provider] - 11/24/18 9:00 am Inpatient Charges Provider[facility] Travon Ann [facility] Last Filed: 11/17/18 17:49> Date of Encounter: 11/17/18 Oncology: Obj Data - Labs CBC & Chem 7: 11/17/18 04:51 11/15/18 01:09 Inpatient Charges Provider: Dr. Travon Ann Follow up - Inpatient: [id number] - Attending Attestation I examined this patient and my medical decision-making was reviewed with the Advanced Practice Nurse. I agree with the documented findings, disposition and treatment plan as described except to the extent set forth below. Newly found hepatic mass seen on abdominal US Will obtain a CT chest/ pelvis with contrast and an MRI of the abdomen focused at the liver w/ and w/o contrast for staging purposes Will check a CEA, AFP, CA 19-9. Several other labs pending. Will continue to follow along with you.
[2018-11-17] MEDS ORDERED: Isovue-370 500 ML BOTTLE IVP ONE (15:46)
[2018-11-17] MEDS: Piperacillin/Tazobactam 3.375 GM in 0.9 % Sodium Chloride Mini Bag 100 ML IVPB SCH (16:38)
[2018-11-17] MEDS: Thiamine (B-1) 100 MG TABLET PO SCH (16:38)
[2018-11-17] MEDS ORDERED: 0.9 % Sodium Chloride 1,000 ML IVC SCH (17:00)
[2018-11-18] MEDS: Piperacillin/Tazobactam 3.375 GM in 0.9 % Sodium Chloride Mini Bag 100 ML IVPB SCH ×3 (00:23→16:12)
[2018-11-18 05:07] LABS: Hematocrit 34.5 % (35.3-44.9); Hemoglobin 10.9 g/dL (11.5-15.4); Immature Platelets 12.3 % (1.1-6.1); Mean Corpuscular HGB Conc 31.6 g/dL (31.6-35.5); Mean Corpuscular Hemoglobin 30.5 pg (28.0-33.3); Mean Corpuscular Volume 96.6 fL (83.0-100.0); Red Blood Count 3.57 M/mcL (3.82-4.97); Red Cell Distribution Width 16.9 % (11.5-14.5); White Blood Count 14.4 K/mcL (4.3-11.1)
[2018-11-18 05:23] LABS: Albumin 2.4 g/dL (3.5-5.7); Albumin/Globulin Ratio 0.8 (1.1-2.2); Bilirubin,Direct 0.4 mg/dL (0.0-0.2); Bilirubin,Indirect 0.4 mg/dL (0.0-1.2); Bilirubin,Total 0.8 mg/dL (0.3-1.0); Globulin 2.9 g/dL (2.4-3.5); Total Protein 5.3 g/dL (6.4-8.9)
[2018-11-18] MEDS ORDERED: D5% in Water 1,000 ML IVC PRN (06:38)
[2018-11-18] MEDS ORDERED: Dextrose Gel 15 GM/37.5 ML TUBE PO PRN ×2 (06:38)
[2018-11-18] MEDS ORDERED: *HR* Dextrose 50 % in Water (Syg) 50 ML SYRINGE IVP PRN (06:38)
[2018-11-18] MEDS ORDERED: Furosemide 20 MG/2 ML VIAL IVP ONE (07:23)
[2018-11-18] MEDS ORDERED: D5% in 0.9% NACL 1,000 ML IVC SCH (07:30)
[2018-11-18] MEDS: Folic Acid 1 MG TABLET PO SCH (08:27)
[2018-11-18] MEDS: Thiamine (B-1) 100 MG TABLET PO SCH (08:27)
[2018-11-18] MEDS: Cholecalciferol (D-3) 1,000 UNIT (25MCG) TABLET PO SCH (08:27)
--- NOTE | 2018-11-18 10:35 | Internal Med Progress Note ---
Hospitalist Progress Note - Encounter Date of Encounter: 11/18/18 Time of Encounter: 08:00 - Subjective Interval History: Patient was seen and examined at bedside. I discussed all imaging finding and lab findings with the patient. She understands that she could have cancer and will need further workup. Currently she is in agreement however does want to think about further diagnostic studies. I discussed that hematology/oncology along with GI will recommend how a biopsy will be performed. He tolerated by mouth diet yesterday denies any nausea, vomiting or diarrhea. Has had no abdominal pain. Denies shortness of breath, palpitations or chest pain. Is inquiring about discharge, all questions answered. - Exam Vitals: Temp Pulse Resp BP Pulse Ox 97.5 F L 93 15 106/57 97 11/18/18 06:36 11/18/18 06:36 11/18/18 06:36 11/18/18 06:36 11/18/18 06:36 Exam: General: Patient is alert, oriented, no acute distress, thin Head: atraumatic, normocephalic, dark discoloration of her face, slight discoloration around the eye and for head. Eye: normal appearance, PERRL, no scleral icterus, no conjunctival pallor ENT: mucous membranes moist, normal external ear exam Neck: normal inspection, trachea midline, full ROM, Chest: normal inspection, symmetric chest rise Respiratory: Good respiratory effort. Bilateral breath sounds are clear without wheezing, crackles, or rhonchi. Cardiovascular: tachcardic . s1 and s2 No clicks, rubs, gallops, ? murmur at the right 2nd ICS Abdomen: Bowel sounds present normoactive x-4 quadrants. Abdomen is soft, n ondistended. no Epigastric tenderness. No guarding or rebound. No organomegaly noted, thin musculoskeletal: Spontaneously moving all extremities. no edema, no calf tenderness Skin: warm, dry, intact. Neuro: Alert and oriented x4. no focal deficit Psych: Patient's affect is normal - Assessment and Plan (1) Acute blood loss anemia Current Visit: Yes Status: Acute Assessment and Plan: most likley secondary to GI bleed and possible malignancy - hemoglobin was 14 in 11/2017 Status post 3 PRBC occult blood positive GI on board for EGD and colonoscopy on 11/15- colonoscopy with angioectasia and multiple polyps- path report pending F/u in 3 years . EGD with few angiectasia in duodenum, small hiatal hernia PO protonix B12 within normal limit, iron panel noted on folate replacement continue to monitor vitals closely orthostatic vitals negative as per nursing staff hematology on board - work up ordered as per their recs. follow EGD and colonoscopy pathology as above recieved IV iron on 11/16 (2) Choledocholithiasis Current Visit: Yes Status: Acute Assessment and Plan: incidental finding on RUQ US she has no N/V. tolerating PO diet MRCP Gallbladder distention with numerous stones and sludge. Common bile duct stone measuring 10 x 8 mm is seen resulting in ductal dilatation. Consider ERCP. on zosyn GI on board lipase 131 NPO for possible ERCP (3) Liver mass, right lobe Current Visit: Yes Status: Acute Assessment and Plan: has multiple liver masses ?primary liver vs cholangiocarcinoma vs mets AFP ordered oncology and GI on board will follow oncology and Gi recommendations in regards to biopsy. pathology from colonoscopy pending CEA 850 MRI abdomen: Liver masses as described. Findings are concerning for malignancy (both primary liver/cholangiocarcinoma or metastatic disease) until proven otherwise but imaging features are nonspecific as to the type of malignancy. Tissue sampling is recommended. (4) Cirrhosis Current Visit: Yes Status: Acute Assessment and Plan: Cirrhotic appearance of the liver with a trace amount of ascites. unknown etiology ( dendies alcholo use, doubt hemochromatosis as ferritin is negative) ceruplasmin inprocess hepatitis panel negative AFP inprocess rest of [facility] labs for work up as per GI in process GI on board - discussed case will follow rest of their recs. (5) GI bleeding Current Visit: Yes Status: Acute Assessment and Plan: mgmt as above (6) Bilateral pleural effusion Current Visit: Yes Status: Acute Assessment and Plan: likely secondary to multiple blood tranfusions and aggressive hydration along with hypoalbuminemia - one dose of lasix ordered not in respiratory distress and saturating well on RA CT chest Evidence of diffuse anasarca, with subcutaneous edema, moderate-sized bilateral pleural effusions, a small moderate-sized pericardial effusion, and with diffuse edema throughout the mediastinal fat. Convincing evidence of intrathoracic neoplasm is not identified. There are borderline enlarged AP window lymph nodes which are probably reactive. (7) Elevated troponin Current Visit: Yes Status: Acute Assessment and Plan: most likely secondary to supple vs demand mismatch from tachycardia secondary to severe anemia Troponin 0.14-0.15-0.19-0.17 Continues to remain chest pain-free TTE below Continue statins cardiology on board OP follow up TTE: LVEF 60-65%. Moderate concentric left ventricular hypertrophy. Mild left ventricular diastolic dysfunction. Normal right ventricular structure and function. Moderate aortic stenosis. Moderate aortic regurgitation. Unable to estimate RVSP due to lack of TR jet. (8) CAP (community acquired pneumonia) Current Visit: Yes Status: Acute Assessment and Plan: Was started on ceftriaxone and azithromycin Urine antigens are negative, discontinued azithromycin continue Abx willl transition to po on discharge blood cx NGTD CXR in one week to ensure resolution. (9) Thrombocytopenia Current Visit: Yes Status: Acute Assessment and Plan: ? secondary to cirrhosis RUQ US with cirrhosis Avoid anticoagulation and antiplatelets hematology on board peripheral smear pending (10) Aortic stenosis Current Visit: Yes Status: Acute Assessment and Plan: moderate and AR on TTE cardiology on board (11) Underweight Current Visit: Yes Status: Acute Assessment and Plan: BMI is 17.3 nutrition consulted (12) Macrocytosis Current Visit: Yes Status: Acute Assessment and Plan: b12 within normal limit Folate low was started on replacement Hematology on board (13) DVT prophylaxis Current Visit: Yes Status: Acute Assessment and Plan: scds (14) Back pain Current Visit: Yes Status: Resolved - Time Spent with Patient Total time spent is greater than 50% in coordination of care (as documented) at patient's floor/unit and/or counseling patient: 25 - 35 minutes Plan of Care Discussed with: patient Internal Medicine: Result - Labs CBC & Chem 7: 11/18/18 04:26 11/15/18 01:09 Labs: Short CBC 11/18/18 Range/Units 04:26 WBC 14.4 H (4.3-11.1) K/mcL Hgb 10.9 L (11.5-15.4) g/dL Hct 34.5 L (35.3-44.9) % Plt Count 61 L (140-400) K/mcL Liver Function 11/17/18 11/18/18 Range/Units 12:26 04:26 Total Bilirubin 0.7 0.8 (0.3-1.0) mg/dL Direct Bilirubin 0.2 0.4 H (0.0-0.2) mg/dL AST 64 H 67 H (13-39) Units/L ALT 16 17 (7-52) Units/L Alkaline Phosphatase 405 H 429 H (34-104) Units/L Albumin 2.3 L 2.4 L (3.5-5.7) g/dL - ABG Interpretation ABG results: PT/INR, D-dimer PT 14.0 Seconds (9.4-12.1) H 11/14/18 11:41 - Impressions Impressions Abdomen MRI 11/17/18 11:15 IMPRESSION: 1. Liver masses as described. Findings are concerning for malignancy (both primary liver/cholangiocarcinoma or metastatic disease) until proven otherwise but imaging features are nonspecific as to the type of malignancy. Tissue sampling is recommended. 2. Gallbladder distention with numerous stones and sludge. Common bile duct stone measuring 10 x 8 mm is seen resulting in ductal dilatation. Consider ERCP. 3. Right hepatic lobe biliary ductal dilatation is likely related to obstruction by the large hepatic mass. 4. Moderate bilateral effusions. D/ / 11/18/2018 07:15:35 Kathi Valadez MD / [facility] Interpreting Provider: Kathi Valadez MD Chest CT 11/17/18 15:46 IMPRESSION: Large heterogeneous mass is seen within the liver. Please see abdomen MRI report. Evidence of diffuse anasarca, with subcutaneous edema, moderate-sized bilateral pleural effusions, a small moderate-sized pericardial effusion, and with diffuse edema throughout the mediastinal fat. Convincing evidence of intrathoracic neoplasm is not identified. There are borderline enlarged AP window lymph nodes which are probably reactive. D/ / Dmitri Erwin MD / Dmitri Erwin MD Interpreting Provider: Dmitri Erwin MD Pelvis CT 11/17/18 15:46 IMPRESSION: Evidence of diffuse anasarca, with subcutaneous edema and a moderate amount of free pelvic fluid. No evidence of metastatic disease within the abdomen pelvis is found. 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 D/ / Dmitri Erwin MD / Dmitri Erwin MD Interpreting Provider: Dmitri Erwin MD Consult Discharge Plan - Plan Referrals: Monica Vernon CNP [Primary Care Provider] - 11/24/18 9:00 am (4) Cirrhosis Qualifiers: Hepatic cirrhosis type: unspecified hepatic cirrhosis Ascites presence: with ascites Qualified Code(s): K74.60 - Unspecified cirrhosis of liver; R18.8 - Other ascites (5) GI bleeding Qualifiers: GI bleed type/associated pathology: unspecified gastrointestinal hemorrhage type Qualified Code(s): K92.2 - Gastrointestinal hemorrhage, unspecified (8) CAP (community acquired pneumonia) Qualifiers: Laterality: left Lung location: lower lobe of lung Qualified Code(s): J18.1 - Lobar pneumonia, unspecified organism (10) Aortic stenosis Qualifiers: Cardiac valve disease etiology: etiology unspecified Qualified Code(s): I35.0 - Nonrheumatic aortic (valve) stenosis (14) Back pain Qualifiers: Back pain location: low back pain Chronicity: chronic Back pain laterality: bilateral Sciatica presence: without sciatica Qualified Code(s): M54.5 - Low back pain; G89.29 - Other chronic pain
--- NOTE | 2018-11-18 10:58 | Event Note ---
Date of Encounter: 11/18/18 Time of Encounter: 10:54 MRI abdomen demonstrates 3 discrete mass lesions measuring 6.5 x 5.8 x 5.6 cm in segment IV/VIII and 7.5 x 7.4 x 5.1 cm in segment V/, segment VIII mass measures 7 mm, gallbladder is distended with numerous gallstones and sludge, moderate intra and extrahepatic biliary dilatation, filling defect is identified in the proximal common bile duct measuring 10 x 8 mm, right hepatic lobe biliary ductal dilatation is likely related to obstruction by the large hepatic mass. Patient will require liver biopsy, but is high risk of bleeding due to cirrhosis. Dr. Martínez to speak with Dr. Ann to discuss options. CEA >850 AFP, CA 19-9 pending Hold on ERCP for now.
--- NOTE | 2018-11-18 11:42 | Oncology Inp Progress Note ---
Date of Encounter: 11/18/18 Oncology: Obj Data - Labs CBC & Chem 7: 11/18/18 04:26 11/15/18 01:09 Consult Discharge Plan - Plan Referrals: Monica Vernon CNP [Primary Care Provider] - 11/24/18 9:00 am
[2018-11-18 13:06] LABS: Immunoglobulin G Subclass 1 555 mg/dL (240-1118); Immunoglobulin G Subclass 2 325 mg/dL (124-549); Immunoglobulin G Subclass 3 121 mg/dL (21-134); Immunoglobulin G Subclass 4 10 mg/dL (1-123); Immunoglobulin M 54 mg/dL (35-263)
--- NOTE | 2018-11-18 14:03 | Oncology Inp Progress Note ---
<Roman Ann - Last Filed: 11/18/18 16:33> Date of Encounter: 11/18/18 Oncology: Obj Data - Labs CBC & Chem 7: 11/18/18 04:26 11/15/18 01:09 Consult Discharge Plan - Plan Referrals: Monica Vernon, DISK RECORDIST [Primary Care Provider] - 11/24/18 9:00 am Inpatient Charges Provider: Dr. Travon Ann Follow up - Inpatient: [id number] - Attending Attestation I examined this patient and my medical decision-making was reviewed with the Advanced Practice Nurse. I agree with the documented findings, disposition and treatment plan as described except to the extent set forth below. -MRI of the Abdomen shows multiple lesions in the liver. CEA > 850. AFP pending. -Will obtain a duplex US of her LEs b/l to evaluate for a possible DVT -Will arrange outpatient follow up with us in two weeks -Would recommend holding off on biopsy at this time due to thrombocytopenia in combination with cirrhosis -Will consider biopsy once patient has improved and platelets have increased <Mireya Serrano - Last Filed: 11/18/18 16:42> Date of Encounter: 11/18/18 Time of Encounter: 14:01 (1) Acute blood loss anemia Current Visit: Yes Status: Acute Assessment and plan: Presented with acute anemia hgb 4.9, hgb 9.6 today s/p 3 units PRBC Macrocytosis present on admission EGD with small hiatal hernia and few AVM treated with APC. Colonoscopy with five polyps and single AVM treated with APC. S/P venofer for EDDI LDH- Significant elevated at 883-indirect bili normal-check rut- secondary to liver disease? Haptoglobin-pending Retic- 4.8% Smear-pending SPEP-pending FOBT-positive US of abdomen reveals cirrhosis, ill defined mass right hepatic lobe 6.0x5.2x6.2 cm Plan: Most likely multifactorial- acute blood loss/iron deficiency anemia, setting of malignancy S/P venofer Continue Folic acid PO. LDH significantly elevated-secondary to liver burden? Indirect rut 2+ positive, indirect bili is normal- does not appear consistent with TTP given negative rut, will await blood smear Blood smear pending (2) Liver mass, right lobe Current Visit: Yes Status: Acute Assessment and plan: Current Visit: Yes Status: Acute Assessment and plan: US of abdomen reveals cirrhosis, ill defined mass right hepatic lobe 6.0x5.2x6.2 cm CEA: > 850 MRI abdomen liver protocol with 3 discrete masses. Cirrhotic morphology of the liver is not appreciated on the current MRI. Liver demonstrates 3 discrete mass lesions measuring 6.5 x 5.8 x 5.6 cm in segment IV/VIII and 7.5 x 7.4 x 5.1 cm in segment V/. A segment VIII mass measures 7 mm (series 3, image 7). The lesions demonstrate high T2 and low T1 signal intensity. On post-contrast imaging, heterogeneous enhancement is identified. No obvious hepatic vein or portal vein thrombosis. The masses result in moderate right biliary dilatation. ERCP on-hold due to thrombocytopenia. Plts 61,[address] chest and pelvis with IV contrast Evidence of diffuse anasarca, with subcutaneous edema and a moderate amount of free pelvic fluid. No evidence of metastatic disease within the abdomen pelvis is found. 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 Hepatitis panel GI consulted, appreciate recommendations Plan: AFP, CA 19-9 pending Discussed imaging findings with patient, she is questioning whether she declines further workup and treatment, will continue to discuss as an outpatient when thrombocytopenia improves. Patient agreeable to follow-up with Dr. Ann as an outpatient in 2 weeks. (3) Thrombocytopenia Current Visit: Yes Status: Acute Assessment and plan: PLTS 61,000 today. Denies hematuria, hematochezia, or melena. Multifactorial in setting of cirrhosis, liver mass, suspected blood loss As above, does not appear consistent with HIT/TTP, blood smear is still pending Transfuse for plt <10 or for plt <50 with s/s bleeding or fever Plan: Hold biopsy at this time. Patient agreeable to follow-up with Dr. Ann in 2 weeks to discuss biopsy. Oncology: Subj Interval history: Macie is awake with family at bedside. She notes frustration without eating today. She states that she is not "doing anymore testing." Discussed that ERCP is on-hold due to thrombocytopenia. She denies fatigue or shortness of breath. Denies abdominal pain. She has had a bowel movement and denies hematochezia or melena. She does state that bilateral ankles have more edema than on admission. 1+ bilateral ankle edema noted. She - Constitutional General appearance: cooperative, no acute distress - Head Head exam: Present: normal inspection, normocephalic - Respiratory Respiratory exam: Present: decreased breath sounds - Extremities Exam Extremities exam: Present: joint swelling, normal capillary refill. Absent: calf tenderness - Neurological Exam Neurological exam: Present: alert, oriented X3, strengths equal and symetr throughout. Absent: facial droop, speech deficit - Psychiatric Psychiatric exam: Present: agitated - Skin Skin exam: Present: normal color Oncology: Obj Data - Labs CBC & Chem 7: 11/18/18 04:26 11/15/18 01:09 Inpatient Charges Provider: Dr. Travon Ann
[2018-11-18 18:43] LABS: Kappa Qnt Free Light Chains 4.8 mg/dL (0.33-1.94); Lambda Qnt Free Light Chains 3.95 mg/dL (0.57-2.63)
[2018-11-19] MEDS: Piperacillin/Tazobactam 3.375 GM in 0.9 % Sodium Chloride Mini Bag 100 ML IVPB SCH ×3 (00:19→15:30)
[2018-11-19 05:09] LABS: Mean Corpuscular HGB Conc 31.6 g/dL (31.6-35.5)
[2018-11-19 05:11] LABS: Hematocrit 29.4 % (35.3-44.9); Hemoglobin 9.3 g/dL (11.5-15.4); Immature Platelets 7.6 % (1.1-6.1); Mean Corpuscular Volume 94.8 fL (83.0-100.0); Mean Platelet Volume 12.7 fL (9.4-12.4); Red Blood Count 3.1 M/mcL (3.82-4.97); Red Cell Distribution Width 16.7 % (11.5-14.5)
[2018-11-19 05:25] LABS: INR 1.2; Prothrombin Time 13.7 Seconds (9.4-12.1)
[2018-11-19 05:28] LABS: Alanine Aminotransferase 16 Units/L (7-52); Albumin 2.2 g/dL (3.5-5.7); Albumin/Globulin Ratio 0.9 (1.1-2.2); Alkaline Phosphatase 423 Units/L (34-104); Aspartate Amino Transferase 62 Units/L (13-39); BUN/Creatinine Ratio 20 (6-26); Bilirubin,Total 0.5 mg/dL (0.3-1.0); Blood Urea Nitrogen 19 mg/dL (8-23); Carbon Dioxide 23 mEq/L (23-29); Chloride 107 mEq/L (98-107); Globulin 2.5 g/dL (2.4-3.5); Glucose 113 mg/dL (70-105); Osmolality,Calculated 289 (280-300); Potassium 3.1 mEq/L (3.5-5.1); Sodium 138 mEq/L (136-145); Total Protein 4.7 g/dL (6.4-8.9); eGFR For African Americans > 60 (> 60); eGFR For Non-African Americans 57 (> 60)
[2018-11-19] MEDS: Cholecalciferol (D-3) 1,000 UNIT (25MCG) TABLET PO SCH (07:41)
[2018-11-19] MEDS: Folic Acid 1 MG TABLET PO SCH (07:41)
[2018-11-19] MEDS: Thiamine (B-1) 100 MG TABLET PO SCH (07:41)
[2018-11-19] MEDS ORDERED: Furosemide 20 MG/2 ML VIAL IVP ONE ×2 (07:42→17:33)
[2018-11-19 08:56] LABS: Alpha 2 Globulin (PEP) 0.53 g/dL (0.48-1.05)
[2018-11-19 09:52] LABS: Hepatitis B Core Ab Total NEGATIVE (Negative)
[2018-11-19 09:57] LABS: IFE Reflexed NOT DONE
[2018-11-19 10:15] LABS: ANA IgG by ELISA DETECTED (None Detected); F-Actin (sm muscle) Ab IgG 10 Units (0-19); Serine Protease-3 Antibody 0 AU/mL (0-19)
[2018-11-19] MEDS ORDERED: Albumin 25% 25gram/100mL 25 GM/100 ML IV.SOLN IVPB ONE (13:14)
--- NOTE | 2018-11-19 14:03 | Internal Med Progress Note ---
Hospitalist Progress Note - Encounter Date of Encounter: 11/19/18 Time of Encounter: 08:00 - Subjective Interval History: debbi was seen and examiend at bedside. plan of care discussed with the patient. does report of LE swelling denies calf tenderness or discoloration. denies N/V/D. has no SOB or palpations. her LE edema improves if she keeps legs elevated. myself and GI specialist Dr. Martínez discussed with patient and it was recommended for her to get Biopsy performed. she s in agreement now. IR was contacted and they will do biopsy in AM DVT Study discussed with hematology and oncology- not a candidate for Anticoagulation- recommended IR consultation for IVC placement. IR called and since her platelets are >50 they will do the IVC filter placement in AM - Exam Vitals: Temp Pulse Resp BP Pulse Ox 98.2 F 88 16 107/41 100 11/19/18 10:15 11/19/18 10:15 11/19/18 10:15 11/19/18 10:15 11/19/18 10:15 Exam: General: Patient is alert, oriented, no acute distress, thin, Head: atraumatic, normocephalic, dark discoloration of her face, slight dis coloration around the eye and for head. Eye: normal appearance, PERRL, no scleral icterus, no conjunctival pallor ENT: mucous membranes moist, normal external ear exam Neck: normal inspection, trachea midline, full ROM, Chest: normal inspection, symmetric chest rise Respiratory: Good respiratory effort. Bilateral breath sounds are clear, has crackles in the posterior chest Cardiovascular: tachcardic . s1 and s2 No clicks, rubs, gallops, ? murmur at the right 2nd ICS Abdomen: Bowel sounds present normoactive x-4 quadrants. Abdomen is soft, nondistended. no Epigastric tenderness. No guarding or rebound. No organomegaly noted, thin musculoskeletal: Spontaneously moving all extremities. generalized anasarca, LE swelling up to knees. Skin: warm, dry, intact. Neuro: Alert and oriented x4. no focal deficit Psych: Patient's affect is normal - Assessment and Plan (1) Acute blood loss anemia Current Visit: Yes Status: Acute Assessment and Plan: most likley secondary to GI bleed and possible malignancy - hemoglobin was 14 in 11/2017 Status post 3 PRBC occult blood positive GI on board for EGD and colonoscopy on 11/15- colonoscopy with angioectasia and multiple polyps- path report pending F/u in 3 years . EGD with few angiectasia in duodenum, small hiatal hernia PO protonix B12 within normal limit, iron panel noted on folate replacement continue to monitor vitals closely orthostatic vitals negative as per nursing staff hematology on board - work up ordered as per their recs. follow EGD and colonoscopy pathology as above received IV iron on 11/16 (2) Choledocholithiasis Current Visit: Yes Status: Acute Assessment and Plan: incidental finding on RUQ US she has no N/V. tolerating PO diet MRCP Gallbladder distention with numerous stones and sludge. Common bile duct stone measuring 10 x 8 mm is seen resulting in ductal dilatation. on zosyn GI on board lipase 131 Discussed case with gastroenterology and no need for ERCP. she is tolerating PO diet (3) Liver mass, right lobe Current Visit: Yes Status: Acute Assessment and Plan: has multiple liver masses ?primary liver vs cholangiocarcinoma vs mets CEA 850 AFP 3 JUAN LUIS positive CA19-9 and otehr work up pending on 11/19- she agreed for biopsy IR consulted for biopsy on 11/20 oncology and GI on board will follow oncology and GI recommendations in regards to biopsy. pathology from colonoscopy- tubular adenoma and hyperplastic polyp. MRI abdomen: Liver masses as described. Findings are concerning for malignancy (both primary liver/cholangiocarcinoma or metastatic disease) until proven otherwise but imaging features are nonspecific as to the type of malignancy. Tissue sampling is recommended. (4) Cirrhosis Current Visit: Yes Status: Acute Assessment and Plan: Cirrhotic appearance of the liver with a trace amount of ascites. unknown etiology ( denies alcholol use, doubt hemochromatosis as ferritin is negative) ceruplasmin inprocess hepatitis panel negative AFP 3 rest of the labs for work up as per GI in process GI on board - discussed case will follow rest of their recs. (5) DVT (deep venous thrombosis) Current Visit: Yes Status: Acute Assessment and Plan: Positive acute DVT bilaterally in the gastroc veins. Positive acute SVT in the left GSV and LSV. Discussed with hematology and recommended IVC filter IR called will place filter in AM along with liver biopsy (6) Occlusion of left iliac artery Current Visit: Yes Status: Acute Assessment and Plan: discussed Ct findings of left iliac Focal occlusion of the left external iliac artery proximally, with reconstitution distally and CADEN with vascular surgeon Dr. arnold on 11/19 after ABIs were resulted. unfortunately she is not a candidate for statins due to liver disease and due to thrombocytopenia and recent severe anemia not a candidate for plavix. he reported that she can follow up as OP for possible angioplasty however post angioplasty she will require to be on Antiplatelets. discussed above with patient and she understands. currently asymptomatic vascular surgery follow up appointment to be provided by nursing staff. (7) GI bleeding Current Visit: Yes Status: Acute Assessment and Plan: mgmt as above (8) Bilateral pleural effusion Current Visit: Yes Status: Acute Assessment and Plan: likely secondary to multiple blood transfusions and aggressive hydration along with hypoalbuminemia S/P 2 dose of lasix albumin transfusion ordered will consider giving an extra dose of lasix after Albumin transfusion not in respiratory distress and saturating well on RA CT chest Evidence of diffuse anasarca, with subcutaneous edema, moderate-sized bilateral pleural effusions, a small moderate-sized pericardial effusion, and with diffuse edema throughout the mediastinal fat. Convincing evidence of intrathoracic neoplasm is not identified. There are borderline enlarged AP window lymph nodes which are probably reactive. (9) Elevated troponin Current Visit: Yes Status: Acute Assessment and Plan: most likely secondary to supple vs demand mismatch from tachycardia secondary to severe anemia Troponin 0.14-0.15-0.19-0.17 Continues to remain chest pain-free TTE below Continue statins cardiology on board OP follow up TTE: LVEF 60-65%. Moderate concentric left ventricular hypertrophy. Mild left ventricular diastolic dysfunction. Normal right ventricular structure and function. Moderate aortic stenosis. Moderate aortic regurgitation. Unable to estimate RVSP due to lack of TR jet. (10) CAP (community acquired pneumonia) Current Visit: Yes Status: Acute Assessment and Plan: Was started on ceftriaxone and azithromycin Urine antigens are negative, discontinued azithromycin continue Abx willl transition to po on discharge blood cx NGTD CXR in one week to ensure resolution. (11) Thrombocytopenia Current Visit: Yes Status: Acute Assessment and Plan: ? secondary to cirrhosis RUQ US with cirrhosis Avoid anticoagulation and antiplatelets hematology on board peripheral smear pending (12) Aortic stenosis Current Visit: Yes Status: Acute Assessment and Plan: moderate and AR on TTE cardiology on board (13) Underweight Current Visit: Yes Status: Acute Assessment and Plan: BMI is 17.3 nutrition consulted (14) Macrocytosis Current Visit: Yes Status: Acute Assessment and Plan: b12 within normal limit Folate low was started on replacement Hematology on board (15) DVT prophylaxis Current Visit: Yes Status: Acute Assessment and Plan: scds (16) Back pain Current Visit: Yes Status: Resolved - Time Spent with Patient Total time spent is greater than 50% in coordination of care (as documented) at patient's floor/unit and/or counseling patient: Internal Medicine: Result - Labs CBC & Chem 7: 11/19/18 04:14 11/19/18 04:14 Labs: Short CBC 11/19/18 Range/Units 04:14 WBC 11.0 (4.3-11.1) K/mcL Hgb 9.3 L D (11.5-15.4) g/dL Hct 29.4 L (35.3-44.9) % Plt Count 56 L (140-400) K/mcL BMP 11/19/18 04:14 Sodium 138 Potassium 3.1 L Chloride 107 Carbon Dioxide 23 BUN 19 Creatinine 0.96 Glucose 113 H Calcium 7.0 L Liver Function 11/19/18 Range/Units 04:14 Total Bilirubin 0.5 (0.3-1.0) mg/dL AST 62 H (13-39) Units/L ALT 16 (7-52) Units/L Alkaline Phosphatase 423 H (34-104) Units/L Albumin 2.2 L (3.5-5.7) g/dL - ABG Interpretation ABG results: PT/INR, D-dimer PT 13.7 Seconds (9.4-12.1) H 11/19/18 04:14 - Impressions Impressions Abdomen MRI 11/17/18 11:15 IMPRESSION: 1. Liver masses as described. Findings are concerning for malignancy (both primary liver/cholangiocarcinoma or metastatic disease) until proven otherwise but imaging features are nonspecific as to the type of malignancy. Tissue sampling is recommended. 2. Gallbladder distention with numerous stones and sludge. Common bile duct stone measuring 10 x 8 mm is seen resulting in ductal dilatation. Consider ERCP. 3. Right hepatic lobe biliary ductal dilatation is likely related to obstruction by the large hepatic mass. 4. Moderate bilateral effusions. D/ / 11/18/2018 07:15:35 Kathi Valadez MD / shawn Interpreting Provider: Kathi Valadez MD Consult Discharge Plan - Plan Instructions: Gastrointestinal Bleeding (DC), Anemia (DC) Referrals: Sixto Stroud MD [Partnered Physician] - (Web request entered, Office will call with date and time of appointment. Thank you) Rich Moses MD [Non-Partnered Physician] - (Office will call with date and time of appointment. Thank you) Monica Vernon CNP [Primary Care Provider] - 11/24/18 9:00 am Roman Ann MD [Partnered Physician] - (Office will call with appointment date and time. Thank you) Su Pimentel MD [Partnered Physician] - (Web request. Office will call with date and time of appointment. Thank you) (4) Cirrhosis Qualifiers: Hepatic cirrhosis type: unspecified hepatic cirrhosis Ascites presence: with ascites Qualified Code(s): K74.60 - Unspecified cirrhosis of liver; R18.8 - Other ascites (5) DVT (deep venous thrombosis) Qualifiers: DVT location: lower extremity Affected thrombotic vein of extremity: unspecified lower extremity distal vein Chronicity: acute Laterality: bilatera l Qualified Code(s): I82.4Z3 - Acute embolism and thrombosis of unspecified deep veins of distal lower extremity, bilateral (7) GI bleeding Qualifiers: GI bleed type/associated pathology: unspecified gastrointestinal hemorrhage type Qualified Code(s): K92.2 - Gastrointestinal hemorrhage, unspecified (10) CAP (community acquired pneumonia) Qualifiers: Laterality: left Lung location: lower lobe of lung Qualified Code(s): J18.1 - Lobar pneumonia, unspecified organism (12) Aortic stenosis Qualifiers: Cardiac valve disease etiology: etiology unspecified Qualified Code(s): I35.0 - Nonrheumatic aortic (valve) stenosis (16) Back pain Qualifiers: Back pain location: low back pain Chronicity: chronic Back pain laterality: bilateral Sciatica presence: without sciatica Qualified Code(s): M54.5 - Low back pain; G89.29 - Other chronic pain
--- NOTE | 2018-11-19 15:49 | Oncology Inp Progress Note ---
<Roman Ann - Last Filed: 11/19/18 17:08> Date of Encounter: 11/19/18 Oncology: Obj Data - Labs CBC & Chem 7: 11/19/18 04:14 11/19/18 04:14 Consult Discharge Plan - Plan Instructions: Gastrointestinal Bleeding (DC), Anemia (DC) Referrals: Sixto Stroud MD [Partnered Physician] - (Web request entered, Office will call with date and time of appointment. Thank you) Rich Moses MD [Non-Partnered Physician] - (Office will call with date and time of appointment. Thank you) Monica Vernon CNP [Primary Care Provider] - 11/24/18 9:00 am Roman Ann MD [Partnered Physician] - (Office will call with appointment date and time. Thank you) Su Pimentel MD [Partnered Physician] - (Web request. Office will call with date and time of appointment. Thank you) Inpatient Charges Provider: Dr. Travon Ann Follow up - Inpatient: [id number] - Attending Attestation I examined this patient and my medical decision-making was reviewed with the Advanced Practice Nurse. I agree with the documented findings, disposition and treatment plan as described except to the extent set forth below. -Biopsy of liver mass to be performed tomorrow. -Positive for Hep A -AFP 3 <MaggieMireya M - Last Filed: 11/20/18 09:14> Date of Encounter: 11/19/18 Time of Encounter: 15:46 (1) Acute blood loss anemia Current Visit: Yes Status: Acute Assessment and plan: Presented with acute anemia hgb 4.9, hgb 9.6 today s/p 3 units PRBC Macrocytosis present on admission EGD with small hiatal hernia and few AVM treated with APC. Colonoscopy with five polyps and single AVM treated with APC. S/P venofer for EDDI LDH- Significant elevated at 883-indirect bili normal-check rut- secondary to liver disease? Haptoglobin-pending Retic- 4.8% Smear-normocytic, normochromic anemia. SPEP-no monoclonal protein noted. FOBT-positive US of abdomen reveals cirrhosis, ill defined mass right hepatic lobe 6.0x5.2x6.2 cm Plan: Most likely multifactorial- acute blood loss/iron deficiency anemia, setting of malignancy S/P venofer Continue Folic acid PO. LDH significantly elevated-secondary to liver burden? Indirect rut 2+ positive, indirect bili is normal- does not appear consistent with TTP given negative rut, will await blood smear Blood smear unremarkable (2) Liver mass, right lobe Current Visit: Yes Status: Acute Assessment and plan: Current Visit: Yes Status: Acute Assessment and plan: US of abdomen reveals cirrhosis, ill defined mass right hepatic lobe 6.0x5.2x6.2 cm CEA: > 850 MRI abdomen liver protocol with 3 discrete masses. Cirrhotic morphology of the liver is not appreciated on the current MRI. Liver demonstrates 3 discrete mass lesions measuring 6.5 x 5.8 x 5.6 cm in segment IV/VIII and 7.5 x 7.4 x 5.1 cm in segment V/. A segment VIII mass measures 7 mm (series 3, image 7). The lesions demonstrate high T2 and low T1 signal intensity. On post-contrast imaging, heterogeneous enhancement is identified. No obvious hepatic vein or portal vein thrombosis. The masses result in moderate right biliary dilatation. ERCP on-hold due to thrombocytopenia. Plts 61,[address] chest and pelvis with IV contrast Evidence of diffuse anasarca, with subcutaneous edema and a moderate amount of free pelvic fluid. No evidence of metastatic disease within the abdomen pelvis is found. 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 Hepatitis panel GI consulted, appreciate recommendations Plan: AFP WNL, CA 19-9 pending Discussed imaging findings with patient, she is questioning whether she declines further workup and treatment, will continue to discuss as an outpatient when thrombocytopenia improves. Patient agreeable to follow-up with Dr. Ann as an outpatient in 2 weeks. (3) Thrombocytopenia Current Visit: Yes Status: Acute Assessment and plan: Plts 56,000 today. Denies hematuria, hematochezia, or melena. Multifactorial in setting of cirrhosis, liver mass, suspected blood loss As above, does not appear consistent with HIT/TTP, blood smear is unremarkable. Transfuse for plt <10 or for plt <50 with s/s bleeding or fever Plan: Patient to have biopsy of liver mass tomorrow, per hospitalist, if platelets > 50,000 (4) DVT (deep venous thrombosis) Current Visit: Yes Status: Acute Assessment and plan: Bilateral DVT Due to thrombocytopenia, patient is not a candidate for anticoagulation at this time. Per hospitalist, the patient will be ordered for IVC filter due to hospitalist's concerns for PE and unable to provide anticoagulation due to thrombocytopenia. Qualifiers: DVT location: lower extremity Affected thrombotic vein of extremity: unspecified lower extremity distal vein Chronicity: acute Laterality: bilateral Qualified Code(s): I82.4Z3 - Acute embolism and thrombosis of unspecified deep veins of distal lower extremity, bilateral Oncology: Subj Interval history: Macie is awake, sitting in the chair this afternoon. She verbalized knowledge of DVT's in bilateral lower extremity. She shortness of breath, fever, chills, nausea, or vomiting. - Constitutional General appearance: cooperative, no acute distress - Head Head exam: Present: normal inspection, normocephalic - Respiratory Respiratory exam: Present: decreased breath sounds - Cardiovascular Cardiovascular exam: Present: RRR - Expanded Lower Extremity Exam Lower leg exam: Present: swelling. Absent: tenderness Ankle exam: Present: swelling. Absent: tenderness - Neurological Exam Neurological exam: Present: alert, oriented X3 - Psychiatric Psychiatric exam: Present: normal affect, normal mood Oncology: Obj Data - Labs CBC & Chem 7: 11/20/18 03:55 11/20/18 03:55
[2018-11-20] MEDS: Piperacillin/Tazobactam 3.375 GM in 0.9 % Sodium Chloride Mini Bag 100 ML IVPB SCH ×3 (00:11→18:23)
[2018-11-20 04:15] LABS: Mean Corpuscular Hemoglobin 30.6 pg (28.0-33.3)
[2018-11-20 04:17] LABS: Hematocrit 26.5 % (35.3-44.9); Hemoglobin 8.2 g/dL (11.5-15.4); Immature Platelets 11.8 % (1.1-6.1); Mean Corpuscular HGB Conc 30.9 g/dL (31.6-35.5); Mean Corpuscular Volume 98.9 fL (83.0-100.0); Red Blood Count 2.68 M/mcL (3.82-4.97); Red Cell Distribution Width 16.5 % (11.5-14.5); White Blood Count 9.6 K/mcL (4.3-11.1)
[2018-11-20 04:33] LABS: BUN/Creatinine Ratio 22 (6-26); Blood Urea Nitrogen 22 mg/dL (8-23); Calcium 7.3 mg/dL (8.6-10.3); Carbon Dioxide 25 mEq/L (23-29); Chloride 114 mEq/L (98-107); Glucose 119 mg/dL (70-105); Osmolality,Calculated 294 (280-300); Potassium 3.8 mEq/L (3.5-5.1); Sodium 140 mEq/L (136-145); eGFR For African Americans > 60 (> 60); eGFR For Non-African Americans 54 (> 60)
[2018-11-20] MEDS: Cholecalciferol (D-3) 1,000 UNIT (25MCG) TABLET PO SCH (08:19)
[2018-11-20] MEDS: Thiamine (B-1) 100 MG TABLET PO SCH (08:20)
[2018-11-20] MEDS: Folic Acid 1 MG TABLET PO SCH (08:20)
--- NOTE | 2018-11-20 09:48 | Internal Med Progress Note ---
Hospitalist Progress Note - Encounter Date of Encounter: 11/20/18 Time of Encounter: 08:00 - Subjective Interval History: She was seen and examined at bedside. Was encouraged to walk around as much as possible. Discussed the DVT findings on this study. She understands that she is not a candidate for anticoagulation and as per hematology oncology there is no recommendations for IVC filter placement. She is for biopsy of her liver mass today and she understands that she will need to be monitored closely for bleeding as she has thrombocytopenia. she denies SOB . reports her LE edema has improved significantly post Albumin and lasix. tolerated PO diet lastnight NPO for procedure. - Exam Vitals: Temp Pulse Resp BP Pulse Ox 98.5 F 94 16 111/55 98 11/20/18 06:48 11/20/18 06:48 11/20/18 06:48 11/20/18 06:48 11/20/18 06:48 Exam: General: Patient is alert, oriented, no acute distress, thin, Head: atraumatic, normocephalic, dark discoloration of her face, slight discoloration around the eye and for head. Eye: normal appearance, PERRL, no scleral icterus, no conjunctival pallor ENT: mucous membranes moist, normal external ear exam Neck: normal inspection, trachea midline, full ROM, Chest: normal inspection, symmetric chest rise Respiratory: Good respiratory effort. Bilateral breath sounds are clear, has crackles in the posterior chest ( improved) Cardiovascular: tachcardic . s1 and s2 No clicks, rubs, gallops, ? murmur at the right 2nd ICS Abdomen: Bowel sounds present normoactive x-4 quadrants. Abdomen is soft, nondistended. no Epigastric tenderness. No guarding or rebound. No organomegaly noted, thin musculoskeletal: Spontaneously moving all extremities. generalized anasarca, LE swelling up to knees. ( improved) Skin: warm, dry, intact. Neuro: Alert and oriented x4. no focal deficit Psych: Patient's affect is normal - Assessment and Plan (1) Acute blood loss anemia Current Visit: Yes Status: Acute Assessment and Plan: most likley secondary to GI bleed and possible malignancy - hemoglobin was 14 in 11/2017 Status post 3 PRBC occult blood positive GI on board for EGD and colonoscopy on 11/15- colonoscopy with angioectasia and multiple polyps- path report pending F/u in 3 years . EGD with few angiectasia in duodenum, small hiatal hernia PO protonix B12 within normal limit, iron panel noted on folate replacement continue to monitor vitals closely orthostatic vitals negative as per nursing staff hematology on board - work up ordered as per their recs. follow EGD and colonoscopy tubular adenoma and hyperplastic polyp received IV iron on 11/16 follow CBC in 3 days (2) Choledocholithiasis Current Visit: Yes Status: Acute Assessment and Plan: incidental finding on RUQ US she has no N/V. tolerating PO diet MRCP Gallbladder distention with numerous stones and sludge. Common bile duct stone measuring 10 x 8 mm is seen resulting in ductal dilatation. [facility] lipase 131 Discussed case with gastroenterology and no need for ERCP. she is tolerating PO diet (3) Liver mass, right lobe Current Visit: Yes Status: Acute Assessment and Plan: has multiple liver masses possibly cholangiocarcinoma vs other carcinoma CEA 850 AFP 3 JUAN LUIS positive CA 19-9 is [id number] other work up pending on 11/19- she agreed for biopsy IR consulted for biopsy on 11/20 oncology and GI on board will follow oncology and GI recommendations in regards to biopsy. pathology from colonoscopy- tubular adenoma and hyperplastic polyp. MRI abdomen: Liver masses as described. Findings are concerning for malignancy (both primary liver/cholangiocarcinoma or metastatic disease) until proven otherwise but imaging features are nonspecific as to the type of malignancy. Tissue sampling is recommended. (4) Cirrhosis Current Visit: Yes Status: Acute Assessment and Plan: Cirrhotic appearance of the liver with a trace amount of ascites. unknown etiology ( denies alcholol use, doubt hemochromatosis as ferritin is negative) ceruplasmin inprocess hepatitis panel negative AFP 3 rest of the labs for work up as per GI in process GI on board - discussed case will follow rest of their recs. (5) DVT (deep venous thrombosis) Current Visit: Yes Status: Acute Assessment and Plan: Positive acute DVT bilaterally in the gastroc veins. Positive acute SVT in the left GSV and LSV. Discussed with hematology discussed different options and they recommneded to montir her. they recommended Against IVC filer due to her thrombocytopenia and as IVC filters have not showed much benefits. discussed this with patient and she is in agreement to monitor without intervention repeat DVT study in 1 week to evaluate clots (6) Occlusion of left iliac artery Current Visit: Yes Status: Acute Assessment and Plan: discussed Ct findings of left iliac Focal occlusion of the left external iliac artery proximally, with reconstitution distally and CADEN with vascular surgeon Dr. arnold on 11/19 after ABIs were resulted. unfortunately she is not a candidate for statins due to liver disease and due to thrombocytopenia and recent severe anemia not a candidate for plavix. he reported that she can follow up as OP for possible angioplasty however post angioplasty she will require to be on Antiplatelets. discussed above with patient and she understands. currently asymptomatic vascular surgery follow up appointment to be provided by nursing staff. (7) GI bleeding Current Visit: Yes Status: Acute Assessment and Plan: mgmt as above (8) Bilateral pleural effusion Current Visit: Yes Status: Acute Assessment and Plan: likely secondary to multiple blood transfusions and aggressive hydration along with hypoalbuminemia S/P albumin and lasix with improvement of her anasarca not in respiratory distress and saturating well on RA CT chest Evidence of diffuse anasarca, with subcutaneous edema, moderate-sized bilateral pleural effusions, a small moderate-sized pericardial effusion, and with diffuse edema throughout the mediastinal fat. Convincing evidence of intrathoracic neoplasm is not identified. There are borderline enlarged AP window lymph nodes which are probably reactive. (9) Elevated troponin Current Visit: Yes Status: Acute Assessment and Plan: most likely secondary to supple vs demand mismatch from tachycardia secondary to severe anemia Troponin 0.14-0.15-0.19-0.17 Continues to remain chest pain-free TTE below Continue statins cardiology on board OP follow up TTE: LVEF 60-65%. Moderate concentric left ventricular hypertrophy. Mild left ventricular diastolic dysfunction. Normal right ventricular structure and function. Moderate aortic stenosis. Moderate aortic regurgitation. Unable to estimate RVSP due to lack of TR jet. (10) CAP (community acquired pneumonia) Current Visit: Yes Status: Acute Assessment and Plan: has received Abx today is day 7 leukocytosis resolved Afebrile Urine antigens are negative, discontinued azithromycin blood cx NGTD CXR in one week to ensure resolution. (11) Thrombocytopenia Current Visit: Yes Status: Acute Assessment and Plan: ? secondary to cirrhosis RUQ US with cirrhosis Avoid anticoagulation and antiplatelets hematology on board (12) Aortic stenosis Current Visit: Yes Status: Acute Assessment and Plan: moderate and AR on TTE cardiology on board (13) Underweight Current Visit: Yes Status: Acute Assessment and Plan: BMI is 17.3 nutrition consulted (14) DVT prophylaxis Current Visit: Yes Status: Acute Assessment and Plan: scds (15) Back pain Current Visit: Yes Status: Resolved Assessment and Plan: lidocaine patch tylenol for pain control lumbar spine: IMPRESSION: Mild degenerative changes with grade 1 anterolisthesis of L4 on L5. Transitional lumbosacral vertebral body is incidentally noted. (16) Macrocytosis Current Visit: Yes Status: Resolved Assessment and Plan: b12 within normal limit Folate low was started on replacement Hematology on board - Time Spent with Patient Total time spent is greater than 50% in coordination of care (as documented) at patient's floor/unit and/or counseling patient: 25 - 35 minutes Plan of Care Discussed with: patient Internal Medicine: Result - Labs CBC & Chem 7: 11/20/18 03:55 11/20/18 03:55 Labs: Short CBC 11/20/18 Range/Units 03:55 WBC 9.6 (4.3-11.1) K/mcL Hgb 8.2 L (11.5-15.4) g/dL Hct 26.5 L (35.3-44.9) % Plt Count 55 L (140-400) K/mcL BMP 11/20/18 03:55 Sodium 140 Potassium 3.8 Chloride 114 H Carbon Dioxide 25 BUN 22 Creatinine 1.00 Glucose 119 H Calcium 7.3 L - ABG Interpretation ABG results: PT/INR, D-dimer PT 13.7 Seconds (9.4-12.1) H 11/19/18 04:14 Consult Discharge Plan - Plan Instructions: Gastrointestinal Bleeding (DC), Anemia (DC) Referrals: Sixto Stroud MD [Partnered Physician] - (Web request entered, Office will call with date and time of appointment. Thank you) Rich Moses MD [Non-Partnered Physician] - (Office will call with date and time of appointment. Thank you) Monica Vernon CNP [Primary Care Provider] - 11/24/18 9:00 am Roman Ann MD [Partnered Physician] - (Office will call with appointment date and time. Thank you) Su Pimentel MD [Partnered Physician] - (Web request. Office will call with date and time of appointment. Thank you) (4) Cirrhosis Qualifiers: Hepatic cirrhosis type: unspecified hepatic cirrhosis Ascites presence: with ascites Qualified Code(s): K74.60 - Unspecified cirrhosis of liver; R18.8 - Other ascites (5) DVT (deep venous thrombosis) Qualifiers: DVT location: lower extremity Affected thrombotic vein of extremity: unspe cified lower extremity distal vein Chronicity: acute Laterality: bilateral Qualified Code(s): I82.4Z3 - Acute embolism and thrombosis of unspecified deep veins of distal lower extremity, bilateral (7) GI bleeding Qualifiers: GI bleed type/associated pathology: unspecified gastrointestinal hemorrhage type Qualified Code(s): K92.2 - Gastrointestinal hemorrhage, unspecified (10) CAP (community acquired pneumonia) Qualifiers: Laterality: left Lung location: lower lobe of lung Qualified Code(s): J18.1 - Lobar pneumonia, unspecified organism (12) Aortic stenosis Qualifiers: Cardiac valve disease etiology: etiology unspecified Qualified Code(s): I35.0 - Nonrheumatic aortic (valve) stenosis (15) Back pain Qualifiers: Back pain location: low back pain Chronicity: chronic Back pain laterality: bilateral Sciatica presence: without sciatica Qualified Code(s): M54.5 - Low back pain; G89.29 - Other chronic pain
[2018-11-20] MEDS ORDERED: 0.9 % Sodium Chloride 500 ML ONE (13:57)
[2018-11-20] MEDS ORDERED: *HR* FentaNYL (PF) 100 MCG/2 ML VIAL IVP ONE (14:12)
[2018-11-20] MEDS ORDERED: *HR* Midazolam HCl 2 MG/2 ML VIAL IVP ONE (14:12)
--- NOTE | 2018-11-20 14:12 | Pre-Sedation Evaluation ---
Pre-sedation evaluation - Pre-sedation checklist Recent Vitals: Last Vital Signs Temp 98.0 F 11/20/18 12:44 Pulse 97 11/20/18 12:44 Resp 15 11/20/18 12:44 BP 111/64 11/20/18 12:44 Pulse Ox 97 11/20/18 12:44 ASA Classification *see protocol: CLASS II-Mild systemic disease Plan of Care: Pt appropriate candidate for procedure/moderate/conscious sedation, Risks/benefits of procedure/sedation discussed w/ patient/family
[2018-11-20 17:12] LABS: ANA HEp-2 IgG IFA DETECTED (<1:80); Anti Nuclear Ab Pattern NUCLEOLAR
[2018-11-21 05:21] LABS: Hematocrit 26.1 % (35.3-44.9); Mean Corpuscular HGB Conc 30.7 g/dL (31.6-35.5); Mean Corpuscular Hemoglobin 30.3 pg (28.0-33.3); Mean Corpuscular Volume 98.9 fL (83.0-100.0); Red Blood Count 2.64 M/mcL (3.82-4.97); Red Cell Distribution Width 16.6 % (11.5-14.5); White Blood Count 10.2 K/mcL (4.3-11.1)
[2018-11-21] MEDS: Folic Acid 1 MG TABLET PO SCH (07:50)
[2018-11-21] MEDS: Thiamine (B-1) 100 MG TABLET PO SCH (07:50)
[2018-11-21] MEDS: Cholecalciferol (D-3) 1,000 UNIT (25MCG) TABLET PO SCH (07:50)
[2018-11-21 10:21] LABS: Hematocrit 29.6 % (35.3-44.9); Hemoglobin 9.3 g/dL (11.5-15.4)
[2018-11-21] MEDS ORDERED: Furosemide 20 MG/2 ML VIAL IVP ONE (11:19)
[2018-11-21] MEDS ORDERED: Albumin 25% 25gram/100mL 25 GM/100 ML IV.SOLN IVPB ONE (11:19)
--- NOTE | 2018-11-21 14:35 | Internal Med Progress Note ---
Hospitalist Progress Note - Encounter Date of Encounter: 11/21/18 Time of Encounter: 08:33 - Subjective Interval History: Patient was seen and examined at bedside. Status post biopsy yesterday in denies any pain. When asked if she has any shortness of breath, chest pain or palpitations she denies. Tolerating by mouth diet. Reports that her swelling h as decreased significantly. Has been walking around her room. Was encouraged to continue to walk around. I discussed her heart rate and I will continue to monitor it. She is in agreement with the plan. - Exam Vitals: Temp Pulse Resp BP Pulse Ox 97.7 F 111 14 124/61 96 11/21/18 14:23 11/21/18 14:23 11/21/18 14:23 11/21/18 14:23 11/21/18 14:23 Exam: General: Patient is alert, oriented, no acute distress, thin, Head: atraumatic, normocephalic, dark discoloration of her face, slight discoloration around the eye and for head. Eye: normal appearance, PERRL, no scleral icterus, no conjunctival pallor ENT: mucous membranes moist, normal external ear exam Neck: normal inspection, trachea midline, full ROM, Chest: normal inspection, symmetric chest rise Respiratory: Good respiratory effort. Bilateral breath sounds are clear, has crackles in the posterior chest ( improved) Cardiovascular: tachcardic . s1 and s2 No clicks, rubs, gallops, ? murmur at the right 2nd ICS Abdomen: Bowel sounds present normoactive x-4 quadrants. Abdomen is soft, nondistended. no Epigastric tenderness. No guarding or rebound. No organomegaly noted, thin musculoskeletal: Spontaneously moving all extremities. generalized anasarca, LE swelling up to knees. ( improved) Skin: warm, dry, intact. Neuro: Alert and oriented x4. no focal deficit Psych: Patient's affect is normal - Assessment and Plan (1) Tachycardia Current Visit: Yes Status: Acute Assessment and Plan: ? secondary to bilaeral pleural effusions and new multiple diagnosis rule out other etiologies ( PE) doubt anemia ( repeat H/H 9.4) will give another dose of albumin followed by lasix ( has generalized anasarca which responded to albumin and lasix) does have DVT and is at risk of PE ( no chest pain or hypoxia at this time) - NOT on ANticoagulation secondary to severe recent anemia and thrombocytopenia if tachycardia does not improve consider getting CTPA incentive spirometry was encouraged to walk around (2) Liver mass, right lobe Current Visit: Yes Status: Acute Assessment and Plan: has multiple liver masses possibly cholangiocarcinoma vs other carcinoma CEA 850 AFP 3 JUAN LUIS positive CA 19-9 is [id number] other work up pending on 11/19- she agreed for biopsy after her discussion with Dr. Penn from GI IR consulted s/p biopsy on 11/20 oncology and GI on board will follow oncology and GI recommendations in regards to biopsy. pathology from colonoscopy- tubular adenoma and hyperplastic polyp. MRI abdomen: Liver masses as described. Findings are concerning for malignancy (both primary liver/cholangiocarcinoma or metastatic disease) until proven otherwise but imaging features are nonspecific as to the type of malignancy. Tissue sampling is recommended. (3) Acute blood loss anemia Current Visit: Yes Status: Acute Assessment and Plan: most likley secondary to GI bleed and possible malignancy - hemoglobin was 14 in 11/2017 Status post 3 PRBC occult blood positive GI on board for EGD and colonoscopy on 11/15- colonoscopy with angioectasia and multiple polyps- path report pending F/u in 3 years . EGD with few angiectasia in duodenum, small hiatal hernia PO protonix B12 within normal limit, iron panel noted on folate replacement continue to monitor vitals closely orthostatic vitals negative as per nursing staff hematology on board - work up ordered as per their recs. follow EGD and colonoscopy tubular adenoma and hyperplastic polyp received IV iron on 11/16 follow CBC in 3 days post discharge. (4) Positive JUAN LUIS (antinuclear antibody) Current Visit: Yes Status: Acute Assessment and Plan: discussed her case with Dr. kong - who recommenedd to order complements c3, c4, Anti DSDNA and connective tissue disease panel . OP follow up with rheumatology. (5) Choledocholithiasis Current Visit: Yes Status: Acute Assessment and Plan: incidental finding on RUQ US she has no N/V. tolerating PO diet MRCP Gallbladder distention with numerous stones and sludge. Common bile duct stone measuring 10 x 8 mm is seen resulting in ductal dilatation. on zosyn GI on board lipase 131 Discussed case with gastroenterology and no need for ERCP. she is tolerating PO diet (6) Cirrhosis Current Visit: Yes Status: Acute Assessment and Plan: Cirrhotic appearance of the liver with a trace amount of ascites. unknown etiology ( denies alcholol use, doubt hemochromatosis as ferritin is negative) ceruplasmin inprocess hepatitis panel negative AFP 3 rest of the labs for work up as per GI in process GI on board - discussed case will follow rest of their recs. (7) DVT (deep venous thrombosis) Current Visit: Yes Status: Acute Assessment and Plan: Positive acute DVT bilaterally in the gastroc veins. Positive acute SVT in the left GSV and LSV. Discussed with hematology discussed different options and they recommneded to montir her. they recommended Against IVC filer due to her thrombocytopenia and as IVC filters have not showed much benefits. discussed this with patient and she is in agreement to monitor without intervention repeat DVT study in 1 week to evaluate clots (8) Occlusion of left iliac artery Current Visit: Yes Status: Acute Assessment and Plan: discussed Ct findings of left iliac Focal occlusion of the left external iliac artery proximally, with reconstitution distally and CADEN with vascular surgeon Dr. arnold on 11/19 after ABIs were resulted. unfortunately she is not a candidate for statins due to liver disease and due to thrombocytopenia and recent severe anemia not a candidate for plavix. he reported that she can follow up as OP for possible angioplasty however post angioplasty she will require to be on Antiplatelets. discussed above with patient and she understands. currently asymptomatic vascular surgery follow up appointment to be provided by nursing staff. (9) GI bleeding Current Visit: Yes Status: Acute Assessment and Plan: mgmt as above (10) Bilateral pleural effusion Current Visit: Yes Status: Acute Assessment and Plan: likely secondary to multiple blood transfusions and aggressive hydration along with hypoalbuminemia S/P albumin and lasix with improvement of her anasarca was given another albumin and lasix on 11/21 not in respiratory distress and saturating well on RA CXR on 11/21- 1. There are small bilateral pleural effusions, increased in size, with increased bibasilar atelectasis. CT chest Evidence of diffuse anasarca, with subcutaneous edema, moderate-sized bilateral pleural effusions, a small moderate-sized pericardial effusion, and with diffuse edema throughout the mediastinal fat. Convincing evidence of intrathoracic neoplasm is not identified. There are borderline enlarged AP window lymph nodes which are probably reactive. (11) Elevated troponin Current Visit: Yes Status: Acute Assessment and Plan: most likely secondary to supple vs demand mismatch from tachycardia secondary to severe anemia Troponin 0.14-0.15-0.19-0.17 Continues to remain chest pain-free TTE below Continue statins cardiology on board OP follow up TTE: LVEF 60-65%. Moderate concentric left ventricular hypertrophy. Mild left ventricular diastolic dysfunction. Normal right ventricular structure and function. Moderate aortic stenosis. Moderate aortic regurgitation. Unable to estimate RVSP due to lack of TR jet. (12) Thrombocytopenia Current Visit: Yes Status: Acute Assessment and Plan: ? secondary to cirrhosis RUQ US with cirrhosis Avoid anticoagulation and antiplatelets hematology on board (13) Aortic stenosis Current Visit: Yes Status: Acute Assessment and Plan: moderate and AR on TTE cardiology on board (14) Underweight Current Visit: Yes Status: Acute Assessment and Plan: BMI is 17.3 nutrition consulted (15) DVT prophylaxis Current Visit: Yes Status: Acute Assessment and Plan: scds (16) Back pain Current Visit: Yes Status: Resolved (17) Macrocytosis Current Visit: Yes Status: Resolved (18) CAP (community acquired pneumonia) Current Visit: Yes Status: Resolved Assessment and Plan: finished course of Abx ( Zosyn) - Time Spent with Patient Total time spent is greater than 50% in coordination of care (as documented) at patient's floor/unit and/or counseling patient: Internal Medicine: Result - Labs CBC & Chem 7: 11/21/18 10:01 11/20/18 03:55 Labs: Short CBC 11/21/18 11/21/18 Range/Units 04:40 10:01 WBC 10.2 (4.3-11.1) K/mcL Hgb 8.0 L 9.3 L (11.5-15.4) g/dL Hct 26.1 L 29.6 L (35.3-44.9) % Plt Count 72 L (140-400) K/mcL - ABG Interpretation ABG results: PT/INR, D-dimer PT 13.7 Seconds (9.4-12.1) H 11/19/18 04:14 - Impressions Impressions Liver Biopsy CT 11/20/18 00:00 IMPRESSION: Successful CT guided core biopsy liver. D/ / Sg Sánchez MD / Sg Sánchez MD Interpreting Provider: Sg Sánchez MD Chest X-Ray 11/21/18 10:58 IMPRESSION: 1. There are small bilateral pleural effusions, increased in size, with increased bibasilar atelectasis. D/ / 11/21/2018 11:39:02 Nitin Patricia MD / bcarter Interpreting Provider: Nitin Patricia MD Consult Discharge Plan - Plan Instructions: Gastrointestinal Bleeding (DC), Anemia (DC) Referrals: Sitxo Stroud MD [Partnered Physician] - (Web request entered, Office will call with date and time of appointment. Thank you) Rich Moses MD [Non-Partnered Physician] - (Office will call with date and time of appointment. Thank you) Monica Vernon CNP [Primary Care Provider] - 11/24/18 9:00 am Roman Ann MD [Partnered Physician] - (Office will call with appointment date and time. Thank you) Su Pimentel MD [Partnered Physician] - (Web request. Office will call with date and time of appointment. Thank you) (6) Cirrhosis Qualifiers: Hepatic cirrhosis type: unspecified hepatic cirrhosis Ascites presence: with ascites Qualified Code(s): K74.60 - Unspecified cirrhosis of liver; R18.8 - Other ascites (7) DVT (deep venous thrombosis) Qualifiers: DVT location: lower extremity Affected thrombotic vein of extremity: unspecified lower extremity distal vein Chronicity: acute Laterality: bilateral Qualified Code(s): I82.4Z3 - Acute embolism and thrombosis of unspecified deep veins of distal lower extremity, bilateral (9) GI bleeding Qualifiers: GI bleed type/associated pathology: unspecified gastrointestinal hemorrhage type Qualified Code(s): K92.2 - Gastrointestinal hemorrhage, unspecified (13) Aortic stenosis Qualifiers: Cardiac valve disease etiology: etiology unspecified Qualified Code(s): I35.0 - Nonrheumatic aortic (valve) stenosis (16) Back pain Qualifiers: Back pain location: low back pain Chronicity: chronic Back pain laterality: bilateral Sciatica presence: without sciatica Qualified Code(s): M54.5 - Low back pain; G89.29 - Other chronic pain (18) CAP (community acquired pneumonia) Qualifiers: Laterality: left Lung location: lower lobe of lung Qualified Code(s): J18.1 - Lobar pneumonia, unspecified organism
[2018-11-21] MEDS ORDERED: Isovue-370 500 ML BOTTLE IVP ONE (15:10)
--- NOTE | 2018-11-21 16:23 | Oncology Inp Progress Note ---
Date of Encounter: 11/21/18 Time of Encounter: 16:21 (1) Choledocholithiasis Current Visit: Yes Status: Acute Assessment and plan: Cholecystitis and gallstone. May have some underlying cancer there. 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 Liver biopsy results pending. But given above findings primary pancreatic versus cholangiocarcinoma is high in the differential. Treatment recommendation after biopsy results. (3) Thrombus of pulmonary vein Current Visit: Yes Status: Acute Assessment and plan: CT angiogram on 11/21/2018 chest showed pulmonary vein thrombosis right lower lobe with extension to the main pulmonary vein was completely within atrium. Cardiomegaly with bilateral pleural effusions. Suspected portal vein thrombosis . An echocardiogram 11/14/2017 showed ejection 40-60%. Diastolic dysfunction. Discussed with the hospitalist. Anticoagulate with heparin IV. Also she would benefit from IVC filter to minimize further risk of pulmonary embolus. She is getting another echocardiogram in the ICU when I examined her Reviewed literature. Pulmonary vein thrombosis is rash. It can happen in patients with malignancy. Agree with interventional radiology consult or surgical consult to see if she would be a candidate for thrombectomy. Also agree with the transferred to tertiary care center Oncology: Subj Interval history: Lab work CA-19-9 came back elevated at 246,000. Reviewed the MRI. There is a 10 limited filling defect in the proximal common bile duct with moderate intra- and extrahepatic bile duct dilatation. Gallbladder distention with numerous stones and the the filling defect in the common bile duct could be a stone. Given the above finding likely her primary is cholangiocarcinoma versus pancreatic cancer. No obvious mass in the pancreas by MRI. Multiple liver metastasis noted.. EGD and colonoscopy did not reveal any colon masses or any other malignancy Oncology: Obj Data - Labs CBC & Chem 7: 11/21/18 17:15 11/20/18 03:55 Consult Discharge Plan - Plan Instructions: Gastrointestinal Bleeding (DC), Anemia (DC) Referrals: Sixto Stroud MD [Partnered Physician] - (Web request entered, Office will call with date and time of appointment. Thank you) Rich Moses MD [Non-Partnered Physician] - (Office will call with date and time of appointment. Thank you) Monica Vernon CNP [Primary Care Provider] - 11/24/18 9:00 am Roman Ann MD [Partnered Physician] - (Office will call with appointment date and time. Thank you) Su Pimentel MD [Partnered Physician] - (Web request. Office will call with date and time of appointment. Thank you) Inpatient Charges Provider: Dr. Emanuel Chow Follow up - Inpatient: [id number]
[2018-11-21] MEDS ORDERED: *HR* Heparin 5,000 UNIT/ML VIAL IVP ONE (17:02)
[2018-11-21] MEDS ORDERED: *HR* Heparin 5,000 UNIT/ML VIAL IVP PRN ×2 (17:02)
[2018-11-21] MEDS ORDERED: Heparin 25,000 UNIT/250 ML D5W 25,000 UNIT/250 ML IV.SOLN IVC SCH (17:15)
--- NOTE | 2018-11-21 17:15 | Event Note ---
Date of Encounter: 11/21/18 Time of Encounter: 17:05 CT chest followed IMPRESSION: 1. No acute pulmonary artery embolism. 2. Pulmonary vein thrombosis right lower lobe. There appears to be likely extension to the main pulmonary vein and questionably within the atrium. 3. Cardiomegaly with bilateral pleural effusions and lower lobe atelectasis or infiltrate. 4. Emphysema. 5. Grossly stable hepatic mass with perihepatic ascites. 6. Suspected portal vein thrombosis. Findings were discussed with Dr. Nick 4:30 p.m. 11/21/2018. I was called by radiology in regards to CT scan findings. As per my research and the radiologist research thrombectomy versus anticoagulations are some of the ways to treat this problem however no set guidelines. I called Dr. Chow the dental front office assistant hematology oncologist and i discussed above with him and he recommended heparin Drip. I discussed about transferring her to a tertiary center and getting interventional radiology consult and is also in agreement. he discussed the lab findings and imaging finding and he reported that she likely has cholangiocarcinoma. i discussed case with patient and at bedside. I discussed the critical findings on the CAT scan with her and her at bedside and I discussed different options with her such as heparin drip and thrombectomy and the improtance of her to transfer to [facility] for further management of her case is too complicated for [facility]. She does not want to be transferred at this moment and she would like to speak to her children. She understands that her case is too complicated for [facility] and she is at high risk of mortality however she would like to hold off being transferred. she understands that she can go into right heart failure and cardiac arrest and . She is in agreement with heparin drip understanding the risks and benefits including bleeding since she had significant anemia on presentation and thrombocytopenia currently. I discussed that we will transfer to the critical care unit for further close monitoring and she is in agreement. I was called by palliative team and CODE STATUS discussion was discussed with the patient, she remains full code. When I asked her about her conversation the palliative team she reported that she cannot remember the conversation. Then after I discussed what was told to me by the palliative team she quickly changed her answer to remembering. She appears to be in somewhat of a denial about her medical condition. Again I discussed all her medical problems during this hospital stay and she understands. i discussed that her biopsy is pending but as per my discussion with the oncology team she likely has cholangiocarcinoma. I discussed that currently we do not have IR at her hospital and that i have placed a call out however a waiting for a response. I will call cardiothoracic surgery and see if they have any further recommendations. I discussed with her and many times that her condition is very critical and very complicated and very high mortality rate and she can She understands that her condition is critical and high mortality but again she would like to stay at our hospital in the ICU until she sees her children. nursing staff aware. heparin drip ordered transfer to ICU for further monitoring IR called currently awaiting response CT surgery called and will see the patient in AM but no CT surgical recs at this time. will give check out to night team in regards to close monitoring follow H/H Q6H follow vitals closely STAT echo ordered Discussed case with critical care attending and he also recommends tertiary center, high mortality rate prognosis is poor
[2018-11-21 17:29] LABS: Hematocrit 25.4 % (35.3-44.9); Hemoglobin 8.1 g/dL (11.5-15.4); Immature Platelets 8.4 % (1.1-6.1); Mean Corpuscular HGB Conc 31.9 g/dL (31.6-35.5); Mean Corpuscular Hemoglobin 31.4 pg (28.0-33.3); Mean Corpuscular Volume 98.4 fL (83.0-100.0); Mean Platelet Volume 12.1 fL (9.4-12.4); Red Blood Count 2.58 M/mcL (3.82-4.97); White Blood Count 12.7 K/mcL (4.3-11.1)
[2018-11-21 17:42] LABS: Heparin anti-factor XA UFH 0.02 IU/mL (0.30-0.70)
[2018-11-21 17:43] LABS: INR 1.1
--- NOTE | 2018-11-21 18:32 | Discharge Summary ---
- NOTES TO OUTPATIENT PROVIDER Notes to Outpatient Provider: as per [facility] Orders not resulted at time of discharge: Pending orders 11/14/18 14:38 Culture,Sputum with Gram Stain [RM] Stat Date of Encounter: 11/21/18 Time of Encounter: 18:27 - Discharge Diagnosis (1) Tachycardia Priority: Primary Status: Acute Assessment and Plan: ? secondary to bilaeral pleural effusions and new multiple diagnosis rule out other etiologies ( PE) doubt anemia ( repeat H/H 9.4) will give another dose of albumin followed by lasix ( has generalized anasarca which responded to albumin and lasix) does have DVT and is high risk for PE ( no chest pain or hypoxia at this time) - NOT on ANticoagulation secondary to severe recent anemia and thrombocytopenia - wells criteria high risk CTPA performed positive for pulmonary vein thrombosis extending to ?atrium. i discussed case with patient and at bedside. I discussed the critical findings on the CAT scan with her and her at bedside and I discussed different options with her such as heparin drip and thrombectomy and the option for her to transfer to tertiary center for further management of her case is too complicated for [facility] as per our consultants ( hematology, pulm/critical care) recommendations. she did not want transfer initially and wanted to wait and see her children. after my discussion with her in the ICU she wanted to transsfer understanding risks and benefits are not limited to even . nursing staff aware. heparin drip ordered transfered to ICU for further monitoring IR called spoke to Dr. Sanford who recommended to continue with heparin Drip for now CT surgery called and will see the patient in AM but no CT surgical recs at this time. will give check out to night team in regards to close monitoring while at [place] follow H/H Q6H follow vitals closely STAT echo ordered Discussed case with [facility] - Dr. Frost accepted the patient (2) Liver mass, right lobe Priority: Secondary Status: Acute Assessment and Plan: has multiple liver masses possibly cholangiocarcinoma vs other carcinoma CEA 850 AFP 3 JUAN LUIS positive CA 19-9 is [id number] other work up pending on 11/19- she agreed for biopsy after her discussion with Dr. Penn from GI IR consulted s/p biopsy on 11/20 oncology and GI on board will follow oncology and GI recommendations in regards to biopsy. pathology from colonoscopy- tubular adenoma and hyperplastic polyp. MRI abdomen: Liver masses as described. Findings are concerning for malignancy (both primary liver/cholangiocarcinoma or metastatic disease) until proven otherwise but imaging features are nonspecific as to the type of malignancy. Tissue sampling is recommended. (3) Acute blood loss anemia Priority: Secondary Status: Acute Assessment and Plan: most likley secondary to GI bleed and possible malignancy - hemoglobin was 14 in 11/2017 Status post 3 PRBC occult blood positive GI on board for EGD and colonoscopy on 11/15- colonoscopy with angioectasia and multiple polyps- path report pending F/u in 3 years . EGD with few angiectasia in duodenum, small hiatal hernia PO protonix B12 within normal limit, iron panel noted on folate replacement continue to monitor vitals closely orthostatic vitals negative as per nursing staff hematology on board - work up ordered as per their recs. follow EGD and colonoscopy tubular adenoma and hyperplastic polyp received IV iron on 11/16 follow CBC in 3 days post discharge. (4) Positive JUAN LUIS (antinuclear antibody) Priority: Secondary Status: Acute Assessment and Plan: discussed her case with Dr. kong - who recommenedd to order complements c3, c4, Anti DSDNA and connective tissue disease panel . OP follow up with rheumatology. (5) Choledocholithiasis Priority: Secondary Status: Acute Assessment and Plan: incidental finding on RUQ US she has no N/V. tolerating PO diet MRCP Gallbladder distention with numerous stones and sludge. Common bile duct stone measuring 10 x 8 mm is seen resulting in ductal dilatation. on [facility] GI on board lipase 131 Discussed case with gastroenterology and no need for ERCP. she is tolerating PO diet (6) Cirrhosis Priority: Secondary Status: Acute Assessment and Plan: Cirrhotic appearance of the liver with a trace amount of ascites. unknown etiology ( denies alcholol use, doubt hemochromatosis as ferritin is negative) ceruplasmin inprocess hepatitis panel negative AFP 3 rest of the labs for work up as per GI in process GI on board - discussed case will follow rest of their recs. Qualifiers: Hepatic cirrhosis type: unspecified hepatic cirrhosis Ascites presence: with ascites Qualified Code(s): K74.60 - Unspecified cirrhosis of liver; R18.8 - Other ascites (7) DVT (deep venous thrombosis) Priority: Secondary Status: Acute Assessment and Plan: Positive acute DVT bilaterally in the gastroc veins. Positive acute SVT in the left GSV and LSV. Discussed with hematology discussed different options and they recommneded to montir her. they recommended Against IVC filer due to her thrombocytopenia and as IVC filters have not showed much benefits. discussed this with patient and she is in agreement to monitor without intervention repeat DVT study in 1 week to evaluate clots Qualifiers: DVT location: lower extremity Affected thrombotic vein of extremity: unspecified lower extremity distal vein Chronicity: acute Laterality: bilateral Qualified Code(s): I82.4Z3 - Acute embolism and thrombosis of unspecified deep veins of distal lower extremity, bilateral (8) Occlusion of left iliac artery Priority: Secondary Status: Acute Assessment and Plan: discussed Ct findings of left iliac Focal occlusion of the left external iliac artery proximally, with reconstitution distally and CADEN with vascular surgeon Dr. arnold on 11/19 after ABIs were resulted. unfortunately she is not a candidate for statins due to liver disease and due to thrombocytopenia and recent severe anemia not a candidate for plavix. he reported that she can follow up as OP for possible angioplasty however post angioplasty she will require to be on Antiplatelets. discussed above with patient and she understands. currently asymptomatic vascular surgery follow up appointment to be provided by nursing staff. (9) GI bleeding Priority: Secondary Status: Acute Assessment and Plan: mgmt as above Qualifiers: GI bleed type/associated pathology: unspecified gastrointestinal hemorrhage type Qualified Code(s): K92.2 - Gastrointestinal hemorrhage, unspecified (10) Bilateral pleural effusion Priority: Secondary Status: Acute Assessment and Plan: likely secondary to multiple blood transfusions and aggressive hydration along with hypoalbuminemia S/P albumin and lasix with improvement of her anasarca was given another albumin and lasix on 11/21 not in respiratory distress and saturating well on RA CXR on 11/21- 1. There are small bilateral pleural effusions, increased in size, with increased bibasilar atelectasis. CT chest Evidence of diffuse anasarca, with subcutaneous edema, moderate-sized bilateral pleural effusions, a small moderate-sized pericardial effusion, and with diffuse edema throughout the mediastinal fat. Convincing evidence of intrathoracic neoplasm is not identified. There are borderline enlarged AP window lymph nodes which are probably reactive. (11) Elevated troponin Priority: Secondary Status: Acute Assessment and Plan: most likely secondary to supple vs demand mismatch from tachycardia secondary to severe anemia Troponin 0.14-0.15-0.19-0.17 Continues to remain chest pain-free TTE below Continue statins cardiology on board OP follow up TTE: LVEF 60-65%. Moderate concentric left ventricular hypertrophy. Mild left ventricular diastolic dysfunction. Normal right ventricular structure and function. Moderate aortic stenosis. Moderate aortic regurgitation. Unable to estimate RVSP due to lack of TR jet. (12) Thrombocytopenia Priority: Secondary Status: Acute Assessment and Plan: ? secondary to cirrhosis RUQ US with cirrhosis Avoid anticoagulation and antiplatelets hematology on board (13) Aortic stenosis Priority: Secondary Status: Acute Assessment and Plan: moderate and AR on TTE cardiology on board Qualifiers: Cardiac valve disease etiology: etiology unspecified Qualified Code(s): I35.0 - Nonrheumatic aortic (valve) stenosis (14) Underweight Priority: Secondary Status: Acute Assessment and Plan: BMI is 17.3 nutrition consulted (15) DVT prophylaxis Priority: Secondary Status: Acute Assessment and Plan: scds (16) Back pain Priority: Secondary Status: Resolved Assessment and Plan: lidocaine patch tylenol for pain control lumbar spine: IMPRESSION: Mild degenerative changes with grade 1 anterolisthesis of L4 on L5. Transitional lumbosacral vertebral body is incidentally noted. Qualifiers: Back pain location: low back pain Chronicity: chronic Back pain laterality: bilateral Sciatica presence: without sciatica Qualified Code(s): M54.5 - Low back pain; G89.29 - Other chronic pain (17) Macrocytosis Priority: Secondary Status: Resolved Assessment and Plan: b12 within normal limit Folate low was started on replacement Hematology on board (18) CAP (community acquired pneumonia) Priority: Secondary Status: Resolved Assessment and Plan: finished course of Abx ( Zosyn) Qualifiers: Laterality: left Lung location: lower lobe of lung Qualified Code(s): J18.1 - Lobar pneumonia, unspecified organism Hospital course: " Ms. Martínez is a 73 year old female with no significant past medical history presented to the emergency department with complaint of abnormal labs. As per patient she recently had routine lab works performed at her primary care physician for her annual checkup and was called earlier on admission morning to come to the emergency department immediately as she was severely anemic. She does complain that she is been more weak over the past month and her weakness has gradually worsened. She is also noticed that she is been having shortness of breath especially on exertion for the past few months this also been progressively worsening. She denies any chest pain, abdominal pain, melena, hematochezia, hemoptysis or hematemesis. She does have low back pain which started about 3-4 months ago as well and she has been taking 2 Aleve along with 2 Tylenols daily which alleviates her back pain. She denies any weakness or numbness of her lower extremities, has had no loss of bowel or bladder function. She denies any numbness or tingling associated with her back pain. She was never anemic, is not taking any medications other than the pain medications above along with multivitamins and cholesterol medications. Has never had a colonoscopy however has had an EGD previously for poor oral intake which was many years ago and she cannot recall the results. She denies cough, chills, fever, chest pain, palpitations, abdominal pain, nausea, vomiting or diarrhea. While in the emergency department her hemoglobin was found to be 5.6. GI was consulted and recommended clear liquid diet today and nothing by mouth at midnight for colonoscopy and endoscopy. She was ordered to be transfused 2 units of PRBC. It was endorsed for admission for further management of her acute blood loss anemia. " patient was admitted with above presentation she was transferred to [facility] ICU with Dr. Frost as accepting physician she was treated for above problems. risks and benefits of transfer discussed with patient and she has accepted transfer. Discharge discussed with: patient, family, nurse, social work, case management, business travel consultant - Time Spent with Patient Total time spent providing and/or coordinating discharge services: Time spent: Greater than 30 minutes (1 hour ) - Discharge Medications Prescriptions: No Action Cholecalciferol (D-3) [Vitamin D] 1,000 unit PO DAILY Levothyroxine [Synthroid] 50 mcg PO Q48H Levothyroxine [Synthroid] 75 mcg PO Q48H Lovastatin [Mevacor] 20 mg PO DAILY Home Medications: Cholecalciferol (D-3) [Vitamin D] 1,000 unit PO DAILY 11/14/18 [History] Levothyroxine [Synthroid] 50 mcg PO Q48H 11/14/18 [History] Levothyroxine [Synthroid] 75 mcg PO Q48H 11/14/18 [History] Lovastatin [Mevacor] 20 mg PO DAILY 11/14/18 [History] Allergies/Adverse Reactions: Allergy/AdvReac Type Severity Reaction Status Date / Time No Known Allergies Allergy Verified 06/04/16 12:54 Date of admission: 11/16/18 12:24 Primary care physician: Monica Vernon Consults: 11/14/18 14:18 Consult to Gastroenterology [CONS] Stat Consulting Provider: Gastroenterology [place] Reason for Consult: gi bleed anemia Call Completed: Yes 11/14/18 16:06 Consult to Nutrition [CONS] Routine Comment: Consulting Provider: NUTRITION Reason for Dietary Consult: PO Supplementation 11/15/18 09:25 Consult to Oncology Hematology [CONS] Routine Consulting Provider: Roman Ann Reason for Consult: thrombocytopenia, severe anemia ( ? secondary to GI bleed) ? MDS ( has macrocytosis ) Call Completed: No 11/16/18 07:22 Consult to Cardiology [CONS] Routine Comment: Consulting Provider: Cardiology [place] Reason for Consult: elevated troponin with severe anemia ( corrected now) and St-T changes in kristian lateral leads Call Completed: No 11/17/18 08:56 Consult to Nurse Navigator [CONS] Routine Comment: pna 11/19/18 14:33 Consult to Palliative Care [CONS] Routine Comment: Consulting Provider: Palliative Care [place] Reason for Consult: patient most likely ahs cancer and was "healthy" prior to this admission, had severe anemia GI bleed now probably cancer with multiple liver mets, DVT bilateral lower extremities, Anasarca, iliac artery thrombosis- for goals of care and for support Call Completed: No 11/21/18 11:20 Consult to Physical Therapy [CONS] Routine Comment: Evaluate, develop and implement POC Reason for Consult: dispostion Does patient have active BEDREST order?: No Is patient medically & hemodynamically stable?: Yes Patient assessed for mobility or mobilized this visit?: Yes 11/21/18 16:47 Consult to Interventional Radiology [CONS] Routine Consulting Provider: Radiology Interventional [place] Reason for Consult: IVC filter placement Time Notified: 16:48 Call Completed: Yes 11/21/18 17:33 Consult to Interventional Radiology [CONS] Stat Consulting Provider: Radiology Interventional [place] Reason for Consult: pulmonary vein thrombosis extending atrium Call Completed: Yes - Constitutional Vitals: Temp Pulse Resp BP Pulse Ox 97.4 F L 112 21 124/61 99 11/21/18 17:45 11/21/18 17:45 11/21/18 17:45 11/21/18 14:23 11/21/18 17:45 Exam: General: Patient is alert, oriented, no acute distress, thin, Head: atraumatic, normocephalic, dark discoloration of her face, slight discoloration around the eye and for head. Eye: normal appearance, PERRL, no scleral icterus, no conjunctival pallor ENT: mucous membranes moist, normal external ear exam Neck: normal inspection, trachea midline, full ROM, Chest: normal inspection, symmetric chest rise Respiratory: Good respiratory effort. Bilateral breath sounds are clear, has crackles in the posterior chest ( improved) Cardiovascular: tachcardic . s1 and s2 No clicks, rubs, gallops, ? murmur at the right 2nd ICS Abdomen: Bowel sounds present normoactive x-4 quadrants. Abdomen is soft, nondistended. no Epigastric tenderness. No guarding or rebound. No organomegaly noted, thin musculoskeletal: Spontaneously moving all extremities. generalized anasarca, LE swelling up to knees. ( improved) Skin: warm, dry, intact. no bleeding of the biopsy site Neuro: Alert and oriented x4. no focal deficit Psych: Patient's affect is normal - Patient Status Disposition: Transfer Critical Access Hosp Condition: Critical - Discharge Instructions Instructions: Gastrointestinal Bleeding (DC), Anemia (DC) Follow Up With: Sixto Stroud MD [Partnered Physician] - (Web request entered, Office will call with date and time of appointment. Thank you) Rich Moses MD [Non-Partnered Physician] - (Office will call with date and time of appointment. Thank you) Monica Vernon CNP [Primary Care Provider] - 11/24/18 9:00 am Roman Ann MD [Partnered Physician] - (Office will call with appointment date and time. Thank you) Su Pimentel MD [Partnered Physician] - (Web request. Office will call with date and time of appointment. Thank you)
--- NOTE | 2018-11-21 18:47 | Event Note ---
Date of Encounter: 11/21/18 Time of Encounter: 16:00 Saw this patient in consult for goals of care discussion. I saw her briefly and discussed goals of care - she had just returned from CT scan to r/o PE. She was upset and crying throughout conversation, stating she was having a hard time processing the fact that she has metastatic cancer. DIscussed current clinical status and began goals of care/code status discussion, but patient desired to wait till her arrives to further discuss. Patient CT results did come bank positive for extensive thrombus and she was transferred to ICU. Dr. Nick discussed findings with oncology who recommended transfer to [facility]. She did eventually agree to transfer and was accepted by [facility]. I did not get chance to complete full consult note.
[2018-11-21 20:48] VITALS: BP 130/61
== END 2018-11-21 20:05 | disposition short-term general hospital (02) | DRG 377 ==
LOC: EMEROOARM 11:30 → 2NNU 11:30 → SUATTDRO 14:31 → 2NNU 18:07 → 3ANU 11-16 20:38 → ICNU 11-21 17:28
PROVIDERS: ADMIT Internal Medicine; ATTEND Internal Medicine
PROC: IRLIVER (2018-11-20 12:00)